=== PATIENT | female | born 1945 | race Caucasian/White ===

== ENCOUNTER 2025-02-14 14:24 | Outpatient (CLI) | payer MEDICARE, SELFPAY ==
--- NOTE | 2025-02-14 14:27 | ECG_ITS ---
Test Date: 2025-02-14 14:31:55 Measurements Intervals [place] Rate: 52 P: 46 NH: 151 QRS: 31 QRSD: 90 T: 17 QT: 402 QTc: 376 Interpretive Statements SINUS BRADYCARDIA OTHERWISE GROSSLY NORMAL TRACE WARNING: DATA QUALITY MAY AFFECT INTERPRETATION No previous ECG available for comparison Electronically Signed On 02-16-2025 15:19:03 CDT by Cory Dinero M.D.
--- OUTSIDE RECORDS SUMMARY | 2025-02-14 14:28 | XMS_ITS | Encounter Summary ---
Author Organization [facility] Healthcare Address [address] [place] [id number] Care Team Providers Care Collection Advisor Name Role Phone Kip Banuelos MD Primary Care Provider + Ruchi Sifuentes Unavailable Unavailable Reason for Visit * Reason Onset Date Comments Scheduling Appointments 09/21/2020 Reminder call for DEXA; No anwer Encounter Details Date Type Department Care Team (Late st Contact Info) Description 09/21/2020 Telephone [facility] [address] [place] [id number] [address] Scheduling Appointments (Reminder call for DEXA; No anwer) Social History Tobacco Use Types Packs/Day Years Used Date Smoking Tobacco: Never Comments No Sex and Gender Information Value Date Recorded Sex Assigned at Not on file 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
--- OUTSIDE RECORDS SUMMARY | 2025-02-14 14:28 | XMS_ITS | Clinical Summary ---
Author Organization [facility] Administrative Offices Address [address] [place] [address] Care Team Providers Care Ladies' Locker Room Attendant Name Role Phone Kip Banuelos MD Primary Care Provider [phone] Allergies Active Allergy Reactions Criticality Noted Date Comments Cefdinir Unknown 12/05/2003 Ciprofloxacin Itching Low 10/03/2015 Clindamycin Itching Low 11/14/2017 Levofloxacin Itching Low 01/09/2004 Medications aspirin (ASPIRIN LOW DOSE) 81 mg Tablet, Delayed Release (E.C.) Take 1 Tablet (81 mg) by mouth daily. 90 Tablet 3 04/01/20 16 Active montelukast (Singulair) 10 mg tablet Take 1 Tablet (10 mg) by mouth daily at bedtime. 90 Tablet 3 08/22/19 22 Active Additional Information Patient not taking.Reported on 08/09/2024 benzonatate (TESSALON) 200 mg capsule Take 1 Capsule (200 mg) by mouth 3 times daily. 30 Capsule 2 08/17/19 23 Active Additional Information Patient not taking.Reported on 08/09/2024 albuterol sulfate 90 mcg/actuation metered powder inhaler Take 2 Puffs by inhalation every 6 hours as needed for Shortness of Breath. 1 Each 1 01/01/20 23 Active Additional Information Patient not taking.Reported on 08/09/2024 rOPINIRole (REQUIP) 0.25 mg tabletIndicati ons:RLS (restless legs syndrome) TAKE 1 TABLET (0.25 MG) BY MOUTH DAILY AT BEDTIME 90 Tablet 1 04/14/20 23 Active Additional Information Patient not taking.Reported on 08/09/2024 doxepin HCl 4% cream compound Apply topically to the affected area every 4 hours as needed. 60 Gram 4 4:58 PM TIE IN MACHINE OPERATOR 05/28/20 23 Active Additional Information Patient not taking.Reported on 08/09/2024 tobramycin (TOBREX) 0.3 % solution Administer 1 Drop in left eye every 4 hours. 5 mL 12/19/19 24 Active Additional Information Patient not taking.Reported on 08/09/2024 pravastatin (PRAVACHOL) 40 mg tablet TAKE 1 TABLET BY MOUTH DAILY WITH SUPPER 90 Tablet 3 06/07/20 24 Active omeprazole (PriLOSEC) 20 mg Capsule, Delayed Release(E.C.) TAKE 1 CAPSULE BY MOUTH EVERY DAY 90 Capsule 3 09/10/19 25 Active levothyroxine 75 mcg tablet TAKE 1 TABLET BY MOUTH EVERY DAY 100 Tablet 3 09/10/19 25 Active amLODIPine (NORVASC) 2.5 mg tablet TAKE 1 TABLET BY MOUTH EVERYDAY AT BEDTIME 90 Tablet 2 09/15/19 25 Active escitalopram oxalate (LEXAPRO) 10 mg tablet TAKE 1 TABLET BY MOUTH EVERY DAY 90 Tablet 1 12/09/19 25 Active meclizine (ANTIVERT) 25 mg tablet TAKE 1 TABLET BY MOUTH 3 TIMES DAILY NEEDED FOR DIZZINESS 30 Tablet 01/22/20 25 Active meclizine (ANTIVERT) 25 mg tablet Take 1 Tablet (25 mg) by mouth 3 times daily as needed for Dizziness. 30 Tablet 01/20/20 24 025 Discontinued Active Problems Patient Care Coordination No te Formatting of this note migh t be different from the original. [id number] 07/04/23 Dr. Frank Dover - Conductor/Engineer Problem Noted Date Diagnosed Date Prediabetes 09/16/2018 Mitral regurgitation 11/08/2013 RLS (restless legs syndrome) 03/02/2010 Age-related osteoporosis wit hout current pathological fracture 02/08/2009 Anal fissure 03/26/2004 Anxiety state 12/21/2003 Hypothyroidism 11/30/2003 Resolved Problems Problem Noted Date Diagnosed Date Resolved Date Acute pharyngitis 08/13/2007 02/08/2009 Screening for lipoid disorders 08/13/2007 02/08/2009 Other malaise and fatigue 08/13/2007 Hematuria 07/16/2006 02/08/2009 Overview (07/04/2010): Updating IMO/ICD9 Code and Description Abdominal or pelvic swelling , mass or lump, unspecified site 07/11/2006 02/08/2009 Need for prophylactic vaccin ation with tetanus-diphtheria (Td) 07/11/2006 02/08/2009 Breast screening, unspecified 05/30/2005 02/08/2009 Disorder of bone and cartilage, unspecified 01/14/2005 02/08/2009 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 03/02/2010 Injury, other and unspecifie d, knee, leg, ankle, and foot 01/14/2005 02/08/2009 Allergy, unspecified not elsewhere classified 01/15/20 05 02/08/2009 Pneumonia, organism unspecified(486) 12/13/2003 02/08/2009 Acute bronchitis 12/09/2003 02/08/2009 Acute sinusitis, unspecified 11/30/2003 02/08/2009 Encounters Date Type Department Care Team Description 02/08/2025 External Device Data [facility]STRACTION Provider, Abstract 01/25/2025 External Device Data [facility]CTION Provider, Abstract 01/20/[address] [phone] Kip Banuelos MD 01/12/2025 External Device Data [facility] ABSTRACTION Provider, Abstract 12/22/2024 External Device Data [facility]STRACTION Provider, Abstract 12/22/2024 External Device Data [facility]STRACTION Provider, Abstract 12/22/2024 External Device Data [facility]STRACTION Provider, Abstract 12/21/2024 External Device Data [facility]STRACTION Provider, Abstract 12/08/2024 [address] [place] [address] [place] [address] Kip Banuelos MD 11/30/2024 Orders Only [place] [address] [place] [id number] Provider, Abstract 11/24/2024 External Device Data [facility] ABSTRACTION Provider, Abstract 11/23/2024 External Device Data [facility] ABSTRACTION Provider, Abstract 11/16/2024 2:54 PM CDT - 11/16/2024 11:59 PM CDT Hospital Encounter [facility] Bone Density [place] [address] [place] [address] Kip Banuelos MD Discharge Disposition: Home or Self Care 11/16/2024 Orders Only [facility] [address] [place] [address] Kip Banuelos MD Age-related osteoporosis without current pathological fracture (Primary Dx) from Last 3 Months Immunizations Immunization Administration Dates Next Due (ADACEL/BOOSTRIX)(10 YR UP) TDAP VACCINE, 0.5ML, IM 12/31/2021,06/18/2011 (AREXVY)(60 YR UP) RSV, WILLOW MBINANT, PROTEIN SUBUNIT RSVPREF, ADJUVANT RECONSTITUTED, 0.5 ML, PF 03/20/2023 (COMIRNATY)(12 YR UP) COVID- 19 VACCINE, MRNA, SPIKE PROTEIN, LNP, KESHAV(PF) 30 MCG/0.3 ML IM SUSP 02/24/2023 (INFANRIX)(6 WKS-6 YRS) DIPT HERIA, TETANUS TOXOIDS, AND ACCELLULAR PERTUSSIS VACCINE (DTAP), 0.5 ML IM 07/11/2006 (PFIZER)(12 YR UP) COVID-19 VACCINE - EMERGENCY USE AUTHORIZATION, MRNA, [id number](PF) 30 MCG/0.3 ML IM SUSP 10/16/2021,03/17/2021,08/01/2020,07/11 (PNEUMOVAX 23)(50 YRS UP) PN EUMOCOCCAL POLYSACCHARIDE (PPV23) 0.5 ML, IM 08/21/2020,02/08/2009,12/21/2003 (PREVNAR 13)(6 WKS UP) PNEUM OCOCCAL CONJUGATE (PCV13) 0.5 ML, IM 03/07/2014 (SHINGRIX)(50 YRS UP) ZOSTER VACCINE RECOMBINANT, 0.5 ML, IM 04/26/2019,02/22/2019 (TDVAX)(7 YRS UP) TETANUS AN D DIPHTHERIA TOXOIDS, ADSORBED (2 LF OF TETANUS TOXOID AND 2 LF OF DIPHTHERIA TOXOID), 0.5ML (PF), IM 01/13/1995 INFLUENZA VACCINE HIGH DOSE QUADRIVALENT 65 YR UP PF IM 02/23/2024,02/07/2022,02/21/2021,03/13 INFLUENZA VACCINE QUADRIVALE NT 6 MOS UP IM 02/24/2023 INFLUENZA VACCINE QUADRIVALE NT 6 MOS UP PF IM 03/30/2015 Influenza A (H1N1) Vaccine IM VFC 04/09/2009 Influenza Seasonal Unspecifi ed Formulation IM 03/13/2020,03/18/2018,03/30/2015,03/15,03/23/2013,04/09/2012,05/09/2011 ,03/09/2010,03/09/2009 Influenza Vaccine High Dose 65+ Yrs IM 9,03/08/2016,02/12/2016 Influenza Vaccine Tri Adjuva nted 65+ PF IM 03/25/2017 Family History Medical History Relation Name Comments Healthy Brother 1 Prostate Cancer Brother 1 prostate rem romeo Healthy Brother 2 Heart Disease Father Nirav Hypertension Father Nirav Colon Cancer Maternal Aunt Colon Cancer Maternal Grandfather Michael Heart Disease Maternal Grandmother Skyla Hypertension Mother Sherie Skin Cancer Mother Sherie Thyroid Disease Mother Sherie Colon Cancer Paternal Grandmother Dayan Heart Disease Paternal Grandmother Dayan Healthy Sister 1 Healthy Sister 2 Healthy Sister 3 Relation Name Status Comments Brother 1 Alive Brother 2 Alive Father Nirav Maternal Aunt Maternal Grandfather Michael Maternal Grandmother Skyla Mother Sherie Other aunt Alive Paternal Grandmother Dayan Sister 1 Alive Sister 2 Alive Sister 3 Alive Social History Tobacco Use Types Packs/Day Years Used Date Smoking Tobacco: Never Passive Smoke Exposure: Never Smokeless Tobacco: Never Tobacco Cessation:Counseling Given: No Alcohol Use Standard Drinks/Week Comments Yes 5 (1 standard drink = 0.6 oz pur e alcohol) socially Social Connections Answer Date Recorded In a typical week, how many times do you talk on the phone with family, friends, or neighbors? More than three times a week 04/20/2020 How often do you get togethe r with friends or relatives? Twice a week 04/20/2020 How often do you attend chur ch or jain services? More than 4 times per year 04/20/2020 Do you belong to any clubs o r organizations such as buddhist groups, unions, fraternal or athletic groups, or school groups? Yes 04/20/2020 Attends Club or Organization Meetings Not on zelalem e 04/20/2020 Marital Status Not on file 04/20/2020 Financial Resource Strain Answer Date R ecorded How hard is it for you to pa y for the very basics like food, housing, medical care, and heating? Not hard at all 08/20/2021 Food Insecurity Answer Date Recorded In the past 12 months, have you worried that your food would run out before you had money to buy more? Never true 08/20/2021 In the past 12 months, did y ou run out of food and didn't have money to buy more? Never true 08/20/2021 Transportation Needs Answer Date Record ed In the past 12 months, has l ack of transportation kept you from medical appointments or from getting medications? No 08/20/2021 Lack of Transportation (Non-Medical) Not on file 08/20/2021 Education Answer Date Recorded What is the highest level of school you have completed or the highest degree you have received? Master's degree (e.g., MA, MS, [place], MEd, [employer], BLAIR) 04/20/2020 Comments No Sex and Gender Information Value Date Recorded Sex Assigned at Not on file Legal Sex Female 2:39 AM TIE IN MACHINE OPERATOR Gender Identity Not on file Sexual Orientation Not on file Last Filed Vital Signs Vital Sign Reading Time Taken Comments Blood Pressure 138/56 08/09/2024 10:59 AM TIE IN MACHINE OPERATOR Pulse 57 08/09/2024 10:59 AM TIE IN MACHINE OPERATOR Temperature 36.2 C (97.2 F) 07/04/2023 10:24 AM TIE IN MACHINE OPERATOR Respiratory Rate 16 12/31/2022 10:0 8 AM CDT Oxygen Saturation 96% 08/09/2024 10: 59 AM TIE IN MACHINE OPERATOR Inhaled Oxygen Concentration - - Weight 69.3 kg (152 lb 12.8 oz) 025 10:59 AM TIE IN MACHINE OPERATOR Height 157.5 cm (5' 2) 08/09/2024 10:5 9 AM TIE IN MACHINE OPERATOR Body Mass Index 27.95 08/09/2024 10:59 AM TIE IN MACHINE OPERATOR Plan of Treatment Upcoming Encounters Date Type Department Care Team (Late st Contact Info) Description 02/15/2025 11:00 AM CDT Office Visit [facility] Primary Care [facility] [address] [place] [phone] Kip Banuelos MD [address] [place] [address] 03/03/2025 2:00 PM CDT Appointment [facility] Diagnostic Cardiology Services [facility] [address] [place] [address] Kip Banuelos MD [address] [facility] [address] [place] [address] Health Maintenance Due Date Last Done Comments Medicare Advantage ([place]) Preventative Visit/Annual Wellness Visit 06/09/2024 07/04/2023, 07/02/2022, 09/10/2021, Additional history exists INFLUENZA VACCINE (#1) 2025 4, 02/24/2023, 03/08/2022, Additional history exists COVID-19 Vaccine (2024- 6 season) 2025 02/24/2023, 03/18/2022, 10/16/2021, Additional history exists OSTEOPOROSIS SCREENING 11/16/2029 5, 10/28/2022, 09/22/2020, Additional history exists DTAP/TDAP/TD VACCINES (4 - T d or Tdap) 01/01/2032 12/31/2021, 06/18/2011, 07/11/2006, Additional history exists ZOSTER VACCINE Completed 04/26/2019, 02/07, 08/29/2014 PNEUMOCOCCAL VACCINE 50+ YEARS Completed 0 08/21/2020, 02/16/2015, 03/07/2014, Additional history exists RSV VACCINE (60+ or ) Completed 03/20/2023 COLORECTAL SCREENING Discontinued 04/29/2023, 10/02/2015, 10/02/2015, Additional history exists Colorectal Cancer Screening Discontinued FIT-DNA Q 3 years Discontinued FIT/FOBT Q 1 year Discontinued Flex Sig/CT Colonography Q 5 years Discontinued Procedures Procedure Name Priority Date/Time Associated Diagnosis Comments VITAMIN B12 LEVEL Routine 02/12/2025 10: 24 AM CDT Vitamin B12 deficiency (non anemic) TSH Routine 02/12/2025 10:24 AM CDT Other hyperlipidemia LIPID PANEL Routine 02/12/2025 10:24 AM CDT Other hyperlipidemia HEMOGLOBIN A1C Routine 02/12/2025 10:24 AM CDT Abnormal glucose COMPREHENSIVE METABOLIC PANEL Routine 02/12/2025 10:24 AM CDT Other hyperlipidemia CBC WITH DIFFERENTIAL Routine 02/12/2025 10:24 AM CDT Essential hypertension XR DEXA BONE DENSITY AXIAL 1 OR MORE SITES Routine 11/16/2024 3:05 PM CDT Osteoporosis, unspecified osteoporosis type, unspecified pathological fracture presence ENDOSCOPY, COLON, SCREENING Routine 04/29/2023 1:43 PM TIE IN MACHINE OPERATOR from Last 3 Months or Most Recently Relevant to Health Maintenance Results * (ABNORMAL) CBC WITH DIFFERENTIAL (02/12/2025 10:24 AM CDT) WBC 4.4 3.8 - 10.8 Thousand/u L [facility] RBC 4.69 3.80 - 5.10 Million/uL [facility] HEMOGLOBIN 13.6 11.7 - 15.5 g/dL [facility] HEMATOCRIT 43.7 35.0 - 45.0 % [facility] MCV 93.2 80.0 - 100.0 fL [facility] MCH 29.0 27.0 - 33.0 pg [facility] MCHC 31.1(L) 32.0 - 36.0 g/dL [facility] Comment: For adults, a slight decrease in the calculated MCHC value (in the range of 30 to 32 g/dL) is most likely not clinically significant; however, it should be interpreted with caution in correlation with other red cell parameters and the patient's clinical condition. RDW 12.8 11.0 - 15.0 % [facility] PLATELETS 254 140 - 400 Thousand/u L [facility] MPV 10.0 7.5 - 12.5 fL [facility] NEUTROPHIL ABSOLUTE 3,058 1,500 - 7,800 cells/uL [facility] LYMPHOCYTE ABSOLUTE 858 850 - 3,900 cells/uL [facility] MONOCYTE ABSOLUTE 317 200 - 950 cells/uL [facility] EOSINOPHIL ABSOLUTE 119 15 - 500 cells/uL [facility] BASOPHILS ABSOLUTE 48 0 - 200 cells/uL [facility] NEUTROPHIL 69.5 % [facility] LYMPHOCYTES 19.5 % [facility] MONOCYTE 7.2 % [facility] EOSINOPHILS 2.7 % [facility] BASOPHILS 1.1 % [facility] Comment: FASTING:YES FASTING: YES Test Performed at: [facility] [address] [place] [address] Emilie Rice MD Blood 02/12/2025 10:2 4 AM CDT 02/12/2025 10:25 AM CDT us Kip Banuelos MD HEMATOLOGY ORDERABLES Final R esult [facility] [phone] [facility] [address] * TSH (02/12/2025 10:24 AM CDT) TSH 1.09 0.40 - 4.50 mIU/L [facility] Comment: Test Performed at: [facility] [address] [place] [address] Emilie Rice MD Blood 02/12/2025 10:2 4 AM CDT 02/12/2025 10:25 AM CDT Kip Banuelos MD CHEMISTRY ORDERABLES Final Re sult [facility] [phone] [facility] [address] [place] [address] * (ABNORMAL) HEMOGLOBIN A1C (02/12/2025 10:24 AM CDT) HEMOGLOBIN A1C 5.7(H) <5.7 % of total Hgb [facility] Comment: For someone without known diabetes, a hemoglobin A1c value between 5.7% and 6.4% is consistent with prediabetes and should be confirmed with a follow-up test. For someone with known diabetes, a value <7% indicates that their diabetes is well controlled. A1c targets should be individualized based on duration of diabetes, age, comorbid conditions, and other considerations. This assay result is consistent with an increased risk of diabetes. Currently, no consensus exists regarding use of hemoglobin A1c for diagnosis of diabetes for children. ESTIMATED AVERAGE GLUCOSE (MG/DL) 117 mg/dL [facility] Michael ESTIMATED AVERAGE GLUCOSE (MMOL/L) 6.5 mmol/L [facility] Comment: FASTING:YES FASTING: YES Test [facility]formed [facility]: [facility] [address] [address] [facility] Blood 02/12/2025 10:2 4 AM CDT 02/12/2025 10:25 AM CDT Kip Banuelos MD CHEMISTRY ORDERABLES Final Re sult [facility] [phone] [facility] [address] [place] [address] * VITAMIN B12 LEVEL (02/12/2025 10:24 AM CDT) VITAMIN B12 698 200 - 1100 pg/mL [facility] Comment: FASTING:YES FASTING: YES Test Performed at: [facility] [address] [place] [address] Emilie Rice MD Blood 02/12/2025 10:2 4 AM CDT 02/12/2025 10:25 AM CDT Kip Banuelos MD CHEMISTRY ORDERABLES Final Re sult [facility] [phone] [facility] [address] [place] [address] * LIPID PANEL (02/12/2025 10:24 AM CDT) CHOLESTEROL 157 <200 mg/dL [facility] HDL 64 > OR = 50 mg/dL [facility] TRIGLYCERIDE 93 <150 mg/dL [facility] LDL CALCULATED 75 mg/dL (calc) [facility] Comment: Reference range: <100 Desirable range <100 mg/dL for primary prevention; <70 mg/dL for patients with CHD or diabetic patients with > or = 2 CHD risk factors. LDL-C is now calculated using the Lul-Stockton calculation, which is a validated novel method providing better accuracy than the Friedewald equation in the estimation of LDL-C. Lul SS et al. TAYLER. 2013;310(19): 0378-6289 (http://education.BookBub.DNAdigest/faq/XSO287) CHOL/HDL RATIO 2.5 <5.0 (calc) [facility] NON-HDL CHOLESTEROL 93 <130 mg/dL (calc) [facility] Comment: For patients with diabetes plus 1 major ASCVD risk factor, treating to a non-HDL-C goal of <100 mg/dL (LDL-C of <70 mg/dL) is considered a therapeutic option. Test Performed at: [facility] [address] [place] [address] Emilie Rice MD Blood 02/12/2025 10:2 4 AM CDT 02/12/2025 10:25 AM CDT Kip Banuelos MD CHEMISTRY ORDERABLES Final Re sult [facility] [phone] [facility] [address] [place] [address] * COMPREHENSIVE METABOLIC PANEL (02/12/2025 10:24 AM CDT) GLUCOSE 88 65 - 99 mg/dL [facility] Comment: Fasting reference interval BUN 17 7 - 25 mg/dL [facility] CREATININE 0.94 0.60 - 1.00 mg/dL [facility] GFR 62 > OR = 60 mL/min/1. 73m2 [facility] BUN/CREAT RATIO SEE NOTE: 6 - (calc) [facility] Comment: Not Reported: BUN and Creatinine are within reference range. SODIUM 142 135 - 146 mmol/L [facility] POTASSIUM 4.4 3.5 - 5.3 mmol/L [facility] CHLORIDE 104 98 - 110 mmol/L [facility] CO2 30 20 - 32 mmol/L [facility] CALCIUM 9.1 8.6 - 10.4 mg/dL [facility] TOTAL PROTEIN 6.7 6.1 - 8.1 g/dL [facility] ALBUMIN 4.2 3.6 - 5.1 g/dL [facility] GLOBULIN 2.5 1.9 - 3.7 g/dL (calc) [facility] ALBUMIN/GLOBULIN RATIO 1.7 1.0 - 2.5 (calc) [facility] BILIRUBIN TOTAL 0.9 0.2 - 1.2 mg/dL [facility] ALKALINE PHOSPHATASE 92 37 - 153 U/L [facility] AST 14 10 - 35 U/L [facility] ALT 14 6 - 29 U/L [facility] Comment: FASTING:YES FASTING: YES Test Performed at: [facility] [address] [place] [address] Emilie Rice MD Blood 02/12/2025 10:2 4 AM CDT 02/12/2025 10:25 AM CDT us Kip Banuelos MD CHEMISTRY ORDERABLES Final Re sult [facility] [phone] [facility] [address] [place] [address] * XR DEXA BONE DENSITY AXIAL 1 OR MORE SITES (11/16/2024 3:05 PM CDT) Anatomical Region Laterality Modality Digital Radiogra phy 11/16/2024 3:05 PM CDT Impressions 11/16/2024 3:10 PM CDT IMPRESSION: Osteoporosis. Lumbar Spine: T-score: -3.1 Left Femoral Neck: T-score: -1.5 Left Total Femur: T-score: -1.5 Right Femoral Neck: T-score: -1.8 Right Total Femur: T-score: -1.6 FRAX FRACTURE RISK ASSESSMENT: 10-Year probability of fracture Major osteoporotic fracture: 19.5 % Defined as fracture of the spine, hip or shoulder. Hip fracture: 4.4 % This is a summary page. Please refer to the complete detailed report found in: Imaging Section of the [facility] EMR. Definitions: Normal: T-score above -1.0 Osteopenia T-score less than -1.0 and above -2.5 Osteoporosis: T-score <= -2.5 Note: Clinical Osteoporosis may be based on other factors besides DXA calculated BMD. Other factors include and are not limited to fragility fractures, subclinical compression fractures,osteopenia and elevated FRAX Scores. A major osteoporotic fracture is defined as a fracture of the spine, forearm, hip or shoulder. Dictated by Dr. Rolan Mota MD DICTATION LOCATION: 1 Narrative 11/16/2024 3:10 PM CDT EXAMINATION: BONE DENSITY STUDY (DXA) DATE: 11/16/2024 3:05 PM HISTORY: 79 years Female. Postmenopausal. Osteoporosis. PROCEDURE: Planar images of the lumbar spine and hip(s). Webbynode DEXA scanner for bone mineral density determination (BMD). Prior bone density: 10/28/2022 FINDINGS: Lumbar Spine (L1-L2): T-score: -3.1 Prior T-score: -2.6 Left Femoral Neck: T-score: -1.5 Prior T-score: -1.4 Left Total Femur: T-score: -1.5 Right Femoral Neck: T-score: -1.8 Prior T-score: -1.4 Right Total Femur: T-score: -1.6 TECHNICAL ISSUES: L3-L4 excluded because of degenerative changes. Procedure Note Rolan Mota MD - 11/16/2024 EXAMINATION: BONE DENSITY STUDY (DXA) DATE: 11/16/2024 3:05 PM HISTORY: 79 years Female. Postmenopausal. Osteoporosis. PROCEDURE: Planar images of the lumbar spine and hip(s). [employer] DEXA scanner for bone mineral density determination (BMD). Prior bone density: 10/28/2022 FINDINGS: Lumbar Spine (L1-L2): T-score: -3.1 Prior T-score: -2.6 Left Femoral Neck: T-score: -1.5 Prior T-score: -1.4 Left Total Femur: T-score: -1.5 Right Femoral Neck: T-score: -1.8 Prior T-score: -1.4 Right Total Femur: T-score: -1.6 TECHNICAL ISSUES: L3-L4 excluded because of degenerative changes. IMPRESSION: Osteoporosis. Lumbar Spine: T-score: -3.1 Left Femoral Neck: T-score: -1.5 Left Total Femur: T-score: -1.5 Right Femoral Neck: T-score: -1.8 Right Total Femur: T-score: -1.6 FRAX FRACTURE RISK ASSESSMENT: 10-Year probability of fracture Major osteoporotic fracture: 19.5 % Defined as fracture of the spine, hip or shoulder. Hip fracture: 4.4 % This is a summary page. Please refer to the complete detailed report found in: Imaging Section of the [facility] EMR. Definitions: Normal: T-score above -1.0 Osteopenia T-score less than -1.0 and above -2.5 Osteoporosis: T-score <= -2.5 Note: Clinical Osteoporosis may be based on other factors besides DXA calculated BMD. Other factors include and are not limited to fragility fractures, subclinical compression fractures,osteopenia and elevated FRAX Scores. A major osteoporotic fracture is defined as a fracture of the spine, forearm, hip or shoulder. Dictated by Dr. Rolan Mota MD DICTATION LOCATION: 1 Kip Banuelos MD DIAGNOSTIC IMAGING ORDERABLES Final Result * ENDOSCOPY, COLON, SCREENING (04/29/2023 1:43 PM TIE IN MACHINE OPERATOR) Abstract Provider GI PROCEDURE ORDERABLES Edited Result - Final [facility] CLIA# [id number] [id number] [place] [address] from Last 3 Months or Most Recently Relevant to Health Maintenance Insurance [employer] [facility] [employer] Medicare Part D Advance Directives For more information, please contact: [phone] * Full Code (Latest Code Status on File) Date Activated Date Inactivated Comments 06/24/2017 7:49 AM 06/24/2017 11:48 AM * Full Code Date Activated Date Inactivated Comments 04/24/2015 6:56 AM 04/24/2015 10:56 AM Care Teams Ladies' Locker Room Attendant Relationship Specialty Start Date End Date Kip Banuelos MD [address] [place] [phone] PCP - General 08/05/06
--- OUTSIDE RECORDS SUMMARY | 2025-02-14 14:28 | XMS_ITS | Encounter Summary ---
Author Organization [facility] Healthcare Address [address] [place] [address] Care Team Providers Care Cloth Hauler Name Role Phone Kip Banuelos MD Primary Care Provider + Ruchi Sifuentes Unavailable Unavailable Encounter Details Date Type Department Care Team (Late st Contact Info) Description 06/18/2022 Documentation [facility] Physical Therapy [address] [place] [address] Maria Elena Kay, PT Social History Tobacco Use Types Packs/Day Years Used Date Smoking Tobacco: Never Smokeless Tobacco: Never AUDIT-C Answer Date Recorded Q1: How often do you have a drink containing alc ohol? Monthly or less 11/16/2021 Q2: How many drinks containi ng alcohol do you have on a typical day when you are drinking? 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
--- OUTSIDE RECORDS SUMMARY | 2025-02-14 14:28 | XMS_ITS | Encounter Summary ---
Author Organization [facility] Address [address] [place] [address] Care Team Providers Care Inspector And Hand Packager Name Role Phone Kip Banuelos MD Primary Care Provider [phone] Reason for Visit * Reason Onset Date Comments Misplaced eye glasses 04/10/2023 Encounter Details Date Type Department Care Team (Late st Contact Info) Description 04/10/2023 Telephone [facility] Primary Care [address] [place] [address] Kip Banuelos MD [address] [place] [address] [address] [place] [address] Misplaced eye glasses Social History Tobacco Use Types Packs/Day Years Used Date Smoking Tobacco: Never Smokeless Tobacco: Never Alcohol Use Standard Drinks/Week Comments Yes 5 (1 standard drink = 0.6 oz pur e alcohol) Social Connections Answer Date Recorded In a typical week, how many times do you talk on the phone with family, friends, or neighbors? More than three times a week 04/20/2020 How often do you get togethe r with friends or relatives? Twice a week 04/20/2020 How often do you attend chur ch or muslim services? 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 She states she may have left her purple readers. She is requesting a call back if they are found. Call-back Number: [phone] documented in this encounter Plan of Treatment Upcoming Encounters Date Type Department Care Team (Late st Contact Info) Description 02/15/2025 11:00 AM CDT Office Visit [facility] Primary Care [address] [place] [address] Kip Banuelos MD [address] [place] [address] [address] [place] [address] 03/03/2025 2:00 PM CDT Appointment [facility] Diagnostic Cardiology Services [facility] [address] [facility] [address] [place] [phone] Kip Banuelos MD [address] [place] [address] [address] [place] [address] documented as of this encounter Visit Diagnoses Not on filedocumented in this encounter Care Teams Inspector And Hand Packager Relationship Specialty Start Date End Date Kip Banuelos MD [address] [place] [address] [address] [place] [address] PCP - General 08/05/06 documented as of this encounter
--- OUTSIDE RECORDS SUMMARY | 2025-02-14 14:28 | XMS_ITS | Encounter Summary ---
Author Organization [facility] Address 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 [address] [place] [address] 03/03/2025 2:00 PM CDT Appointment [facility] Diagnostic Cardiology Services [facility] [address] [facility] [address] [place] [address] Kip Banuelos MD [address] [place] [address] [place] [phone] documented as of this encounter Visit Diagnoses Not on filedocumented in this encounter Care Teams Career Technology Teacher Relationship Specialty Start Date End Date Kip Banuelos MD [address] [place] [address] [address] [place] [address] PCP - General 08/05/06 documented as of this encounter
--- OUTSIDE RECORDS SUMMARY | 2025-02-14 14:28 | XMS_ITS | Clinical Summary ---
Author Organization [facility] Address [address] [place] [address] Care Team Providers Care Bar Tacker Sewing Machine Name Role Phone John Monzon MD Primary Care Provider + Ruchi Sifuentes Unavailable Unavailable Allergies Active Allergy Reactions Criticality Noted Date Comments Cefdinir Rash,Unknown Low 12/05/2003 Reaction: RASH Ciprofloxacin Itching Low 10/03/2015 Reaction: ITCHING Clindamycin Itching Low 11/14/2017 Erythromycin Diarrhea Low Levofloxacin Rash,Itching Low 01/09/2004 Reaction: RASH Medications levothyroxine (SYNTHROID) 75 mcg tablet take 1 tablet (75MCG) by oral route every day 0 3 Active escitalopram (LEXAPRO) 10 mg tablet take 1 tablet (10MG) by oral route every day 0 3 Active naproxen sodium (ALEVE) 220 mg capsule takes 1 tablet daily at bedtime 0 0 3 Active omeprazole (PriLOSEC) 20 mg capsule Take 20 mg by mouth daily 2 Active pravastatin (PRAVACHOL) 20 mg tablet Take 20 mg by mouth daily 1 Active montelukast (SINGULAIR) 10 mg tablet Take 10 mg by mouth daily 2 Active aspirin 81 mg enteric coated tablet Take 81 mg by mouth daily 6 Active cycloSPORINE (RESTASIS) 0.05 % ophthalmic emulsion Administer into affected eye(s) Active azelastine (ASTELIN) 137 mcg (0.1 %) nasal spray Administer 2 sprays into affected nostril(s) 2 (two) times a day 2 Active amLODIPine (NORVASC) 2.5 mg tablet 2 Active meclizine (ANTIVERT) 25 mg tablet Take 25 mg by mouth 2 (two) times a day 2 Active Active Problems Problem Noted Date Diagnosed Date Distal radius fracture, right 11/16/2021 Carpal tunnel syndrome of right wrist 11/16/2021 Overview (11/16/2021): Added automatically from request for surgery [id number] Prediabetes 09/16/2018 Mitral regurgitation 11/08/2013 Osteopenia 10/14/2012 Overview (09/12/2016): Osteopenia RLS (restless legs syndrome) 03/02/2010 Osteoporosis 02/08/2009 Anal fissure 03/26/2004 Anxiety state 12/21/2003 Hypothyroidism 11/30/2003 Immunizations Immunization Administration Dates Next Due Influenza, Trivalent, IM (MDV) 03/17/2016 Pfizer SARS-CoV-2 Monovalent Vaccination (12+ Yrs) PURPLE 10/16/2021,03/17/2021,08/01/2020,2020 Tdap 06/18/2011 Surgical History Surgery Date Site/Laterality Comments OTHER SURGICAL HISTORY Appendectomy 1968 OTHER SURGICAL HISTORY Sphinctorotomy 1999 Medical History Medical History Date Comments Motion sickness Heart murmur Asthma Allergic rhinitis Hypothyroidism Family History Medical History Relation Name Comments Breast cancer Cousin x 2 Cancer Other 1 Family H/O Cancer; Hypertension Other 1 Family H/O Hypertension; Relation Name Status Comments Cousin x 2 Other 1 Family H/O Alive Other 2 Family H/O Alive Social History Tobacco Use Types Packs/Day [...] on file 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 Gender Identity Not on file Sexual Orientation Not on file Obstetrics History Para Term AB IAB SAB Ectopic Multiple Livin g Live Births 5 5 5 Date Outcome GA Total Labor Labor/2nd/3rd Weight Sex Type Anes PTL Juliet A1 A5 Name Clin Term Term Term Term Term Last Filed Vital Signs Vital Sign Reading Time Taken Comments Blood Pressure 120/50 11/20/2021 11:15 AM CDT Pulse 52 11/20/2021 11:15 AM CDT Temperature 36.4 C (97.5 F) 11/20/2021 10:54 AM CDT Respiratory Rate 18 11/20/2021 11:15 AM CDT Oxygen Saturation 92% 11/20/2021 11:15 AM CDT Inhaled Oxygen Concentration - - Weight 69.4 kg (153 lb) 02/20/2024 1:15 PM CDT Height 154.9 cm (5' 1) 02/20/2024 1:15 PM CDT Body Mass Index 28.91 02/20/2024 1:15 PM CDT Plan of Treatment Health Maintenance Due Date Last Done Comments Depression Screening 1945 Fall Risk Assessment 1945 Hepatitis C Screening 1945 Hepatitis B Screening 1965 Well Visit 65+ 2012 Osteoporosis Screening-Bone Density Scan 10/28/2024 10/28/2022, 10/28/2022, 09/22/2020, Additional history exists Covid-19 Vaccine (5 - 2024-2 6 season) 2025 10/16/2021, 03/17/2021, 08/01/2020, Additional history exists Influenza Vaccine (#1) 2025 3, 03/13/2020, 02/12/2019, Additional history exists DTaP/Tdap/Td Vaccine (4 - Td or Tdap) 01/01/2032 12/31/2021, 06/18/2011, 07/11/2006, Additional history exists Colon Cancer Screening-CT Colonography Discontinued 10/02/2015, 09/29/2015 Colon Cancer Screening-Colonoscopy Discontinued 10/02/2015, 09/29/2015 Colon Cancer Screening-DNA Stool Discontinued 10/02/19 16, 09/29/2015 Colon Cancer Screening-FIT Discontinued 10/02/2015, Colon Cancer Screening-FOBT Discontinued 10/02/2015, 0 09/29/2015 Colon Cancer Screening-Sigmoidoscopy Discontinued 10/02/2015, 09/29/2015 Colorectal Cancer Screening Discontinued Zoster Vaccine Completed 04/26/2019, 02/07, 08/29/2014 Pneumococcal vaccine 65+ Completed 021, 03/07/2014, 02/08/2009, Additional history exists Breast Cancer Screening-Mammogram Discontinued 03/31/2024, 02/24/2023, 12/20/2021, Additional history exists Medical Devices Implanted Type Area Chute Loader Device Identifier Shelf Expiration Date Model / Serial / Lot [employer] 3 Hole Anatomic Graft Window Radius Right Wrist Volar Narrow [id number] - [id number] Implanted:Qty: 1 on 11/20/2021 by Ale Trujillo MD at [facility] Right: Wrist [employer] AR-[id number]- 03 / / [employer] Low Profile Screws 3.5mm 12mm Self Drill Solid Midfoot Cortical T [id number]-8935-12 - [id number] Implanted:Qty: 1 on 11/20/2021 by Ale Trujillo MD at [facility] Right: Wrist [employer] AR-8935-12 / / [employer] Screw Kreulock Compression Titanium 2.4x18mm [id number] - [id number] Implanted:Qty: 4 on 11/20/2021 by Ale Trujillo MD at [facility] Right: Wrist [employer] AR-8724VCL- 18 / / [employer] Screw Kreulock Compression Titanium 2.4x20mm [id number] - [id number] Implanted:Qty: 1 on 11/20/2021 by Ale Trujillo MD at [facility] Right: Wrist [employer] AR-8724VCL- 20 / / [employer] Screw Kreulock Compression Titanium 2.4x16mm [id number] - [id number] Implanted:Qty: 1 on 11/20/2021 by Ale Trujillo MD at [facility] Right: Wrist [employer] AR-8724VCL- 16 / / [employer] Screw Kreulock Compression Titanium 3.5x14mm [id number] - [id number] Implanted:Qty: 1 on 11/20/2021 by Ale Trujillo MD at [facility] Right: Wrist [employer] AR-8935CL-1 4 / / [employer] Screw Kreulock Compression Titanium 3.5x14mm [id number] - [id number] Implanted:Qty: 1 on 11/20/2021 by Ale Trujillo MD at [facility] Right: Wrist [employer] AR-8935CL-1 2 / / Procedures Procedure Name Priority Date/Time Associated Diagnosis Comments SCREENING MAMMOGRAM BILATERAL W JERRY Schedule Routine, Read Routine (OP Routine) 03/31/2024 2:10 PM CDT Screening mammogram, encounter for DEXA AXIAL SKELETON BONE DENSITY 1 OR MORE SITES Schedule Routine, Read Routine (OP Routine) 09/22/2020 12:56 PM CDT Asymptomatic menopausal state COLONOSCOPY 10/02/2015 12:00 AM CDT from Last 3 Months or Most Recently Relevant to Health Maintenance Results * Screening Mammogram Bilateral W Jerry (03/31/2024 2:10 PM CDT) Anatomical Region Laterality Modality Breast Bilateral Mammography 03/31/2024 11:3 7 PM CDT Impressions 03/31/2024 11:37 PM CDT There is no mammographic evidence of malignancy. A 1 year screening mammogram is recommended. BI-RADS: 1 - Negative. The patient has been or will be contacted. The patient will be entered into a reminder system with a target due date of 1 year for her next mammogram. Electronically signed by: Sayra Brody M.D. Narrative 03/31/2024 11:37 PM CDT EXAMINATION: SCREENING MAMMOGRAM BILATERAL W JERRY ORDERING HEALTHCARE PROVIDER: SELF SCREENING MAMMOGRAM HISTORY: Routine screening mammography. COMPARISON: 02/24/2023,12/20/2021, 09/22/2020, 04/09/2019 TECHNIQUE: CC and MLO views of the bilateral breasts were obtained with digital technique using breast tomosynthesis with C view. Computer aided detection was utilized. FINDINGS: DENSITY: There are scattered areas of fibroglandular density. BREASTS: There are no suspicious masses, suspicious calcifications, or other suspicious findings in either breast. There has been no suspicious interval change. us Self Screening Mammogram IMG MAMMO PROCEDURES Fi nal Result * Dexa Axial Skeleton Bone Density 1 or 2 Site (09/22/2020 12:56 PM CDT) Anatomical Region Laterality Modality Body N/A Other 09/22/2020 12:5 9 PM CDT Impressions 09/22/2020 1:00 PM CDT According to the World Health Organization criteria, based upon the lumbar spine bone mineral density (T score value of -1.8), the patient has low bone mass (osteopenia). General Recommendations: 1. Consider an evaluation for secondary causes of osteoporosis in patients with low bone density. 2. All patients should be counseled on adequate intake of calcium (1200 mg/day), vitamin D (600-800 IU daily) and exercise. 3. The National Osteoporosis Foundation (NOF) guidelines recommend initiating pharmacological therapy, in addition to calcium, vitamin D and exercise, to reduce fracture risk when: a. T-score less than or equal to -2.5 after secondary causes excluded. b. T-score between -1.0 and -2.5 with secondary causes associated with high risk of fracture. c. 10-year probability of hip fracture more than or equal to 3% (based on FRAX score). d. 10-year probability of major osteoporosis related fracture more than or equal to 20% (based on FRAX score). Followup: People with diagnosed cases of osteoporosis or at high risk for fracture should have regular bone mineral density tests. For patients eligible for Medicare, routine testing is allowed once every 2 years. The testing frequency can be increased to one year for patients who have rapidly progressive disease or those who are receiving long-term steroid therapy. Electronically signed by: MD Lillian Diggs 09/22/2020 1:00 PM CDT COMPLETION DATE: 09/22/2020 1:30 PM ORDERING HEALTHCARE PROVIDER: JOHN MONZON STUDY DESCRIPTION: DEXA AXIAL SKELETON BONE DENSITY 1 OR MORE SITES CLINICAL INDICATIONS: Postmenopausal female here for osteoporosis screening. COMPARISON: None TECHNIQUE: Dual x-ray absorptiometry (DEXA) was performed using 6APT system. GENERAL GUIDELINES: According to WHO guidelines, a T score of -1.0 or greater is normal, between -1.0 to -2.4 is osteopenia, and -2.5 or less is osteoporosis. Z score (instead of T score) is preferred for pediatric, young adults, premenopausal women and men under age of 50 years. In these patients, a Z score greater than or equal to -2.0 is considered to be in the expected range. FINDINGS: LEFT FEMORAL NECK: T-score -1.4 LEFT TOTAL HIP: T-score -0.7 LUMBAR SPINE: T-score -1.8 A FRAX score based upon a DXA study is not reported unless all of the following criteria are met. The patient: a. Is an untreated postmenopausal woman or a man age 50 or older. b. Has low bone mass (T-score between -1.0 and -2.5). c. Has no prior hip or vertebral fracture (clinical or morphometric). d. Has an evaluable hip for DXA study. Procedure Note Susannah Ford MD - 09/22/2020 COMPLETION DATE: 09/22/2020 1:30 PM ORDERING HEALTHCARE PROVIDER: JOHN MONZON STUDY DESCRIPTION: DEXA AXIAL SKELETON BONE DENSITY 1 OR MORE SITES CLINICAL INDICATIONS: Postmenopausal female here for osteoporosis screening. COMPARISON: None TECHNIQUE: Dual x-ray absorptiometry (DEXA) was performed using 6APT system. GENERAL GUIDELINES: According to WHO guidelines, a T score of -1.0 or greater is normal, between -1.0 to -2.4 is osteopenia, and -2.5 or less is osteoporosis. Z score (instead of T score) is preferred for pediatric, young adults, premenopausal women and men under age of 50 years. In these patients, a Z score greater than or equal to -2.0 is considered to be in the expected range. FINDINGS: LEFT FEMORAL NECK: T-score -1.4 LEFT TOTAL HIP: T-score -0.7 LUMBAR SPINE: T-score -1.8 A FRAX score based upon a DXA study is not reported unless all of the following criteria are met. The patient: a. Is an untreated postmenopausal woman or a man age 50 or older. b. Has low bone mass (T-score between -1.0 and -2.5). c. Has no prior hip or vertebral fracture (clinical or morphometric). d. Has an evaluable hip for DXA study. IMPRESSION: According to the World Health Organization criteria, based upon the lumbar spine bone mineral density (T score value of -1.8), the patient has low bone mass (osteopenia). General Recommendations: 1. Consider an evaluation for secondary causes of osteoporosis in patients with low bone density. 2. All patients should be counseled on adequate intake of calcium (1200 mg/day), vitamin D (600-800 IU daily) and exercise. 3. The National Osteoporosis Foundation (NOF) guidelines recommend initiating pharmacological therapy, in addition to calcium, vitamin D and exercise, to reduce fracture risk when: a. T-score less than or equal to -2.5 after secondary causes excluded. b. T-score between -1.0 and -2.5 with secondary causes associated with high risk of fracture. c. 10-year probability of hip fracture more than or equal to 3% (based on FRAX score). d. 10-year probability of major osteoporosis related fracture more than or equal to 20% (based on FRAX score). Followup: People with diagnosed cases of osteoporosis or at high risk for fracture should have regular bone mineral density tests. For patients eligible for Medicare, routine testing is allowed once every 2 years. The testing frequency can be increased to one year for patients who have rapidly progressive disease or those who are receiving long-term steroid therapy. Electronically signed by: Susannah Ford MD John Monzon MD IM DXA PROCEDURES Final Result * COLONOSCOPY (10/02/2015 12:00 AM CDT) Anatomical Region Laterality Modality Other Narrative 10/02/2015 12:00 AM CDT Ordered by an unspecified provider. Procedure Note Provider, MD Maria Elena - 10/02/2015 12:00 AM CDT PROCEDURE REPORT Patient: ROSELIA HONG Account: [id number] Room No: 3618-01 : 1945 Patient Type: IP Attend.: Chasidy Calhoun M.D. Admit Date: 09/29/2015 Dict.: Riley Chandra M.D. Disch. Date: 10/02/2015 NAME OF PROCEDURE: Colonoscopy with biopsy. HISTORY: A 68-year-old female who was admitted with hematochezia and hadan abnormal CT scan, suggesting an abnormality in the descending sigmoidjunction. PHYSICAL EXAMINATION: GENERAL: Well-developed female. LUNGS: Clear. CARDIOVASCULAR: Unremarkable. PROCEDURE: Colonoscopy with biopsy was performed with an Olympus video endoscope. The patient was premedicated by anesthesia. 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 Noactive fistula noted. We inserted the endoscope and saw a normal mucosa until wasgot to the sigmoid descending junction about 38-40 cm. From that point, up tothe splenic flexure, there are diffuse inflammatory changes with a patternpicture most consistent with ischemia and from the splenic flexure onward to thececum, colonic mucosa appears to be normal. We brought the scope back,carefully searching and could find no other abnormalities and when we got back tothe left side of the colon, we did multiple biopsies of the areas ofinflammation and then removed the endoscope. The patient tolerated the procedurewithout difficulty. POSTOPERATIVE DIAGNOSES: 1. Descending colon diffuse inflammatory change compatible withischemic colitis biopsied. 2. Very deformed anus. Electronically Authenticated and Edited by: Riley Chandra MD On 10/03/2015 07:27 AM CDT Riley Chandra M.D. DR/susan TD: 10/02/2015 20:40 CC: John Monzon M.D. Historical Provider ENDOSCOPY PROCEDURES Nasra nixon Result from Last 3 Months or Most Recently Relevant to Health Maintenance Insurance [facility] MEDICARE ADVANTAGE [facility] MEDICARE Address: [address] [address] [place] [address] MEDICARE [facility] MEDICARE [facility] MEDICARE Care Teams Bar Tacker Sewing Machine Relationship Specialty Start Date End Date John Monzon MD PCP - General 04/08/16 Ruchi Sifuentes COTA Occupational Therapist Occupational Therapy 12/06/21
--- OUTSIDE RECORDS SUMMARY | 2025-02-14 14:29 | XMS_ITS | Encounter Summary ---
Author Organization [facility] Address 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 [address] [facility] [address] [place] [phone] Kip Banuelos MD [address] [place] [address] [address] [place] [phone] documented as of this encounter Visit Diagnoses Not on filedocumented in this encounter Care Teams Music Arranger Relationship Specialty Start Date End Date Kip Banuelos MD [address] [place] [address] [address] [place] [phone] PCP - General 08/05/06 documented as of this encounter
--- OUTSIDE RECORDS SUMMARY | 2025-02-14 14:29 | XMS_ITS | Encounter Summary ---
Author Organization [facility] Address [address] [place] [address] Care Team Providers Care Grinder Set Up Operator Universal Name Role Phone John Monzon MD Primary Care Provider [phone] Encounter Details Date Type Department Care Team (Latest Contact Info) Description 09/18/2007 Outpatient Historical [facility] John Monzon MD [address] [place] [address] [address] [place] [address] Lump or Mass in Breast Social History Tobacco Use Types Packs/Day Years Used Date Smoking Tobacco: Never Assessed Comments Unknown Sex and Gender Information Value Date Recorded Sex Assigned at Not on file Legal Sex Female 2:39 AM FLOW SPECIALIST Gender Identity Not on file Sexual Orientation Not on file documented as of this encounter Plan of Treatment Upcoming Encounters Date Type Department Care Team (Late st Contact Info) Description 02/15/2025 11:00 AM CDT Office Visit [facility] Primary Care [facility] [address] [facility] [address] [place] [address] John Monzon MD [address] [place] [address] [address] [place] [address] 03/03/2025 2:00 PM CDT Appointment [facility] Diagnostic Cardiology Services [facility] 755 [facility] [address] [place] [address] John Monzon MD [address] [place] [address] documented as of this encounter Procedures Procedure Name Priority Date/Time Associated Diagnosis Comments CT CHEST W CONTRAST Routine 09/18/2007 2 :59 PM CDT POC CREATININE Routine 09/18/2007 2:56 PM CDT documented in this encounter Results * CT CHEST W CONTRAST (09/18/2007 2:59 PM CDT) Anatomical Region Laterality Modality Chest Other 09/18/2007 2:59 PM CDT Narrative 09/19/2007 7:51 AM CDT [address] [address] Admit Date: 09/18/2007 TATIANA HONG Sex: F Admit Prov: JOHN MONZON Date: 1945 Primary Care Prov: JOHN MONZON CMRN: [id number] Room: [facility] SSN: [id number] IMAGING SERVICES Ordering Prov: N/A Accession Number: [id number] Interpretation CT of the chest with intravenous contrast 09/18/2007 Clinical History: Mass in breast Technique: Spiral volumetric acquisition of the chest was performed following intravenous contrast. Findings: No mediastinal, hilar, or axillary adenopathy is seen. No pericardial or pleural effusions are evident. Lung parenchymal windows demonstrate mild biapical pleural-parenchymal changes. Minimal linear scarring or atelectasis is noted within the lateral right upper lobe (image 17). A 4 mm peripheral nodule is noted abutting the pleural surface within the right middle lobe (image 35). No other pulmonary nodules are seen. Minimal atelectasis or scarring within the inferior right middle lobe is present. Minimal dependent atelectasis is seen. No other pulmonary nodules are evident. The visualized portions of the upper abdomen are unremarkable for phase of injection. Impression: 4 mm right middle lobe nodule. This is of uncertain clinical significance. A followup chest CT in 6 months may be considered for further evaluation. Mild biapical pleural-parenchymal changes. . Dictated by: MERARI LOUISE 09/18/2007 15:39 Electronically signed by: MERARI LOUISE09/19/2007 07:51 Transcribed: 09/18/2007 23:15 AMK Procedure Note Merari Louise MD - 09/19/2007 [facility] [address] [place], [place] [address] Admit Date: 09/18/2007 TATIANA HONG Sex: F Admit Prov: JOHN MONZON Date: 1945 Primary Care Prov: JOHN MONZON CMRN: [id number] Room: [facility] SSN: [id number] IMAGING SERVICES Ordering Prov: N/A Interpretation CT of the chest with intravenous contrast 09/18/2007 Clinical History: Mass in breast Technique: Spiral volumetric acquisition of the chest was performed following intravenous contrast. Findings: No mediastinal, hilar, or axillary adenopathy is seen. No pericardialor pleural effusions are evident. Lung parenchymal windows demonstrate mild biapicalpleural-parenchymal changes. Minimal linear scarring or atelectasis is noted within thelateral right upper lobe (image 17). A 4 mm peripheral nodule is notedabutting the pleural surface within the right middle lobe (image 35). No otherpulmonary nodules are seen. Minimal atelectasis or scarring within the inferiorright middle lobe is present. Minimal dependent atelectasis is seen. Noother pulmonary nodules are evident. The visualized portions of the upper abdomen are unremarkable forphase of injection. Impression: 4 mm right middle lobe nodule. This is of uncertain clinicalsignificance. A followup chest CT in 6 months may be considered for furtherevaluation. Mild biapical pleural-parenchymal changes. . Dictated by: MERARI LOUISE 09/18/2007 15:39 Electronically signed by: MERARI LOUISE09/19/2007 07:51 Transcribed: 09/18/2007 23:15 AMK John Monzon MD CT ORDERABLES Final Result * POC CREATININE (09/18/2007 2:56 PM CDT) CREATININE POC 0.9 0.6 - 1.3 mg/dL [facility] Capillary blood specimen (specimen) 09/18/2007 2:56 PM CDT 09/18/2007 2:56 PM CDT us John Monzon MD POINT OF CARE TESTING Final R esult [facility] [address] [facility] [address] documented in this encounter Visit Diagnoses Diagnosis Lump or mass in breast documented in this encounter Care Teams Grinder Set Up Operator Universal Relationship Specialty Start Date End Date John Monzon MD [address] [place] [address] [place] [phone] PCP - General 08/05/06 documented as of this encounter
--- OUTSIDE RECORDS SUMMARY | 2025-02-14 14:29 | XMS_ITS | Encounter Summary ---
Author Organization [facility] Address [address] [place] [address] Care Team Providers Care Grid Inspector Name Role Phone Kip Banuelos MD Primary Care Provider [phone] Encounter Details Date Type Department Care Team (Late Contact Info) Description 01/14/2005 Outpatient Historical [facility] Internal Medicine [address] [address] Kip Banuelos MD [address] [place] [address] [address] [place] [address] Social History Tobacco Use Types Packs/Day Years Used Date Smoking Tobacco: Never Assessed Comments Unknown Sex and Gender Information Value Date Recorded Sex Assigned at Not on file Legal Sex Female 2:39 AM GIG TENDER Gender Identity Not on file Sexual Orientation Not on file documented as of this encounter Last Filed Vital Signs Vital Sign Reading Time Taken Comments Blood Pressure 130/70 01/14/2005 9:15 AM CDT Pulse - - Temperature - - Respiratory Rate - - Oxygen Saturation - - Inhaled Oxygen Concentration - - Weight 59.9 kg (132 lb) 01/14/2005 9:15 AM CDT Height - - Body Mass Index - - documented in this encounter Plan of Treatment Upcoming Encounters Date Type Department Care Team (Late Contact Info) Description 02/15/2025 11:00 AM CDT Office Visit [facility] Primary Care [address] [place] [phone] Kip Banuelos MD [address] [place] [address] [address] [place] [address] 03/03/2025 2:00 PM CDT Appointment [facility] Diagnostic Cardiology Services [facility] 755 [facility] [address] [place] [phone] Kip Banuelos MD [address] [place] [address] [address] [place] [address] documented as of this encounter Visit Diagnoses Not on filedocumented in this encounter Care Teams Grid Inspector Relationship Specialty Start Date End Date Kip Banuelos MD [address] [place] [address] [address] [place] [phone] PCP - General 08/05/06 documented as of this encounter
--- OUTSIDE RECORDS SUMMARY | 2025-02-14 14:29 | XMS_ITS | Encounter Summary ---
Author Organization [facility] Address [address] [place] [address] Care Team Providers Care Rn Clinical Coordinator Name Role Phone Kip Banuelos MD Primary Care Provider [phone] Encounter Details Date Type Department Care Team (Late Contact Info) Description 06/07/2004 Outpatient Historical [facility] Internal Medicine [address] [phone] Kip Banuelos MD [address] [place] [address] [address] [place] [address] Social History Tobacco Use Types Packs/Day Years Used Date Smoking Tobacco: Never Assessed Comments Unknown Sex and Gender Information Value Date Recorded Sex Assigned at Not on file Legal Sex Female 2:39 AM TOLL LINEMAN Gender Identity Not on file Sexual Orientation Not on file documented as of this encounter Last Filed Vital Signs Vital Sign Reading Time Taken Comments Blood Pressure 120/70 06/07/2004 1:45 PM TOLL LINEMAN Pulse - - Temperature - - Respiratory Rate - - Oxygen Saturation - - Inhaled Oxygen Concentration - - Weight 58.1 kg (128 lb) 06/07/2004 1:45 PM TOLL LINEMAN Height - - Body Mass Index - - documented in this encounter Plan of Treatment Upcoming Encounters Date Type Department Care Team (Late st Contact Info) Description 02/15/2025 11:00 AM CDT Office Visit [facility] Primary Care [address] [place] [address] Kip Banuelos MD [address] [place] [address] [address] [place] [phone] 03/03/2025 2:00 PM CDT Appointment [facility] Diagnostic Cardiology Services [address] [place] [phone] Kip Banuelos MD [address] [place] [address] [address] [place] [phone] documented as of this encounter Visit Diagnoses Not on filedocumented in this encounter Care Teams Rn Clinical Coordinator Relationship Specialty Start Date End Date Kip Banuelos MD [address] [place] [address] [address] [place] [phone] PCP - General 08/05/06 documented as of this encounter
--- OUTSIDE RECORDS SUMMARY | 2025-02-14 14:29 | XMS_ITS | Encounter Summary ---
Author Organization [facility] Address [address] [place] [address] Care Team Providers Care Business Applications Developer Name Role Phone Kip Banuelos MD Primary Care Provider [phone] Encounter Details Date Type Department Care Team (Late Contact Info) Description 03/26/2004 Outpatient Historical [facility] Internal Medicine [address] [address] Kip Banuelos MD [address] [place] [address] [address] [place] [address] Social History Tobacco Use Types Packs/Day Years Used Date Smoking Tobacco: Never Assessed Comments Unknown Sex and Gender Information Value Date Recorded Sex Assigned at Not on file Legal 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 Female 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 Gender Identity Not on file Sexual Orientation Not on file documented as of this encounter Last Filed Vital Signs Vital Sign Reading Time Taken Comments Blood Pressure 104/70 03/26/2004 4:30 PM CDT Pulse - - Temperature - - Respiratory Rate - - Oxygen Saturation - - Inhaled Oxygen Concentration - - Weight 59.9 kg (132 lb) 03/26/2004 4:30 PM CDT Height - - Body Mass Index - - documented in this encounter Plan of Treatment Upcoming Encounters Date Type Department Care Team (Late Contact Info) Description 02/15/2025 11:00 AM CDT Office Visit [facility] Primary Care [address] [place] [phone] Kip Banuelos MD [address] [place] [address] [address] [place] [address] 03/03/2025 2:00 PM CDT Appointment [facility] Diagnostic Cardiology Services [facility] 7[address] [facility] [address] [place] [phone] Kip Banuelos MD [address] [place] [address] [address] [place] [address] documented as of this encounter Visit Diagnoses Not on filedocumented in this encounter Care Teams Business Applications Developer Relationship Specialty Start Date End Date Kip Banuelos MD [address] [place] [address] [address] [place] [phone] PCP - General 08/05/06 documented as of this encounter
--- OUTSIDE RECORDS SUMMARY | 2025-02-14 14:29 | XMS_ITS | Encounter Summary ---
Author Organization [facility] Address [address] [place] [address] Care Team Providers Care Utility Clerk Name Role Phone Kip Banuelos MD Primary Care Provider [phone] Encounter Details Date Type Department Care Team (Latest Contact Info) Description 08/13/[address] [facility] Internal Medicine [address] [address] Kip Baunelos MD [address] [place] [address] [address] [place] [address] Acute Pharyngitis Social History Tobacco Use Types Packs/Day Years Used Date Smoking Tobacco: Never Assessed Comments Unknown Sex and Gender Information Value Date Recorded Sex Assigned at Not on file Legal Sex Female 2:39 AM STOCK BROKER SUPERVISOR Gender Identity Not on file Sexual Orientation Not on file documented as of this encounter Plan of Treatment Upcoming Encounters Date Type Department Care Team (Late st Contact Info) Description 02/15/2025 11:00 AM CDT Office Visit [facility] Primary Care [address] [place] [address] Kip Banuelos MD [address] [place] [address] [address] [place] [address] 03/03/2025 2:00 PM CDT Appointment [facility] Diagnostic Cardiology Services [facility] 755 [facility] [address] [place] [address] Kip Banuelos MD [address] [facility] [address] [place] [address] documented as of this encounter Procedures Procedure Name Priority Date/Time Associated Diagnosis Comments THROAT CULTURE Routine 08/13/2007 6:13 PM STOCK BROKER SUPERVISOR documented in this encounter Results * THROAT CULTURE (08/13/2007 6:13 PM STOCK BROKER SUPERVISOR) PRELIMINARY REPORT Pending INTERFACE SYSTEM FINAL REPORT No Group A, C, or G beta Streptococcus isolated. No Arcanobacterium haemolyticum isolated. INTERFACE SYSTEM Specimen from throat (specimen) 08/13/2007 6:13 PM STOCK BROKER SUPERVISOR 08/13/2007 8:58 PM STOCK BROKER SUPERVISOR Narrative INTERFACE SYSTEM - 08/13/2007 11:36 PM STOCK BROKER SUPERVISOR Specimen processed only for recovery of common pathogens known to cause pharyngitis. Special processing for fastidious throat pathogens, such as Neisseria gonorrhoeae or Corynebacterium diphtheriae, is available on SPECIAL REQUEST only. Contact the Laboratory prior to submitting the specimen. Specimen processed only for recovery of common pathogens known to cause pharyngitis. Special processing for fastidious throat pathogens, such as Neisseria gonorrhoeae or Corynebacterium diphtheriae, is available on SPECIAL REQUEST only. Contact the Laboratory prior to submitting the specimen. Kip Banuelos MD MICROBIOLOGY - GENERAL ORDERA BLES Final Result INTERFACE SYSTEM Refer to clinic/hospital department documented in this encounter Visit Diagnoses Diagnosis Acute pharyngitis documented in this encounter Care Teams Utility Clerk Relationship Specialty Start Date End Date Kip Banuelos MD [address] [facility] [address] [place] [phone] PCP - General 08/05/06 documented as of this encounter
--- OUTSIDE RECORDS SUMMARY | 2025-02-14 14:29 | XMS_ITS | Encounter Summary ---
Author Organization [facility] Address [address] [place] [address] Care Team Providers Care House Furnishings Supervisor Name Role Phone Kip Banuelos MD Primary Care Provider [phone] Encounter Details Date Type Department Care Team (Late st Contact Info) Description 07/11/2006 Outpatient Historical [facility] Internal Medicine [address] [address] Kip Banuelos MD [address] [place] [address] Social History Tobacco Use Types Packs/Day Years Used Date Smoking Tobacco: Never Assessed Comments Unknown Sex and Gender Information Value Date Recorded Sex Assigned at Not on file Legal Sex Female 2:39 AM SET PAINTER Gender Identity Not on file Sexual Orientation Not on file documented as of this encounter Plan of Treatment Upcoming Encounters Date Type Department Care Team (Late st Contact Info) Description 02/15/2025 11:00 AM CDT Office Visit [facility]3] Primary Care [address] [place] [address] [place] [address] Kip Banuelos MD [address] [place] [address] [address] [place] [phone] 03/03/2025 2:00 PM CDT Appointment [facility] Diagnostic Cardiology Services [facility] 755 [facility] [address] [place] [phone] Kip Banuelos MD [address] [place] [address] [address] [place] [phone] documented as of this encounter Visit Diagnoses Not on filedocumented in this encounter Care Teams House Furnishings Supervisor Relationship Specialty Start Date End Date Kip Banuelos MD [address] [place] [address] [address] [place] [phone] PCP - General 08/05/06 documented as of this encounter
--- OUTSIDE RECORDS SUMMARY | 2025-02-14 14:29 | XMS_ITS | Encounter Summary ---
Author Organization [facility] Address [address] [place] [address] Care Team Providers Care Manager Loss Prevention Name Role Phone Kip Banuelos MD Primary Care Provider [phone] Encounter Details Date Type Department Care Team (Latest Contact Info) Description 09/18/2007 Outpatient Historical [facility] Kip Banuelos MD [address] [place] [address] [address] [place] [address] Abdominal or Pelvic Swelling, Mass or Lump, Unspecified Site; Disorder of Bone and Cartilage, Unspecified Social History Tobacco Use Types Packs/Day Years Used Date Smoking Tobacco: Never Assessed Comments Unknown Sex and Gender Information Value Date Recorded Sex Assigned at Not on file Legal Sex Female 2:39 AM LEGAL INTERNSHIP Gender Identity Not on file Sexual Orientation Not on file documented as of this encounter Plan of Treatment Upcoming Encounters Date Type Department Care Team (Late st Contact Info) Description 02/15/2025 11:00 AM CDT Office Visit [facility] Primary Care [facility] [address] [place] [address] [address] [place] [address] Kip Banuelos MD [address] [place] [address] [address] [place] [address] 03/03/2025 2:00 PM CDT Appointment [facility] Diagnostic Cardiology Services [facility] 755 [facility] [address] [place] [phone] Kip Banuelos MD [address] [place] [address] [address] [place] [phone] documented as of this encounter Procedures Procedure Name Priority Date/Time Associated Diagnosis Comments XR DEXA BONE DENSITY APPENDICULAR Routine 09/18/2007 4:30 PM CDT documented in this encounter Results * XR DEXA BONE DENSITY APPENDICULAR (09/18/2007 4:30 PM CDT) T-SCORE WRIST -2.5 - -1.0 INTE RFACE SYSTEM T-SCORE HEEL -2.5 - -1.0 INTER FACE SYSTEM Anatomical Region Laterality Modality Other 09/18/2007 4:30 PM CDT Kip Banuelos MD DIAGNOSTIC IMAGING ORDERABLES Final Result documented in this encounter Visit Diagnoses Diagnosis Abdominal or pelvic swelling, mass or lump, unspecified site Disorder of bone and cartilage, unspecified documented in this encounter Care Teams Manager Loss Prevention Relationship Specialty Start Date End Date Kip Banuelos MD [address] [place] [address] [address] [place] [phone] PCP - General 08/05/06 documented as of this encounter
--- OUTSIDE RECORDS SUMMARY | 2025-02-14 14:29 | XMS_ITS | Encounter Summary ---
Author Organization [facility] Address [address] [place] [address] Care Team Providers Care Wafer Polisher Name Role Phone Kip Banuelos MD Primary Care Provider [phone] Encounter Details Date Type Department Care Team (Late st Contact Info) Description 07/11/2006 Outpatient Historical [facility] Internal Medicine [address] [address] Kip Banuelos MD [address] [place] [address] Social History Tobacco Use Types Packs/Day Years Used Date Smoking Tobacco: Never Assessed Comments Unknown Sex and Gender Information Value Date Recorded Sex Assigned at Not on file Legal Sex Female 2:39 AM IT 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 Gender Identity Not on file Sexual Orientation Not on file documented as of this encounter Plan of Treatment Upcoming Encounters Date Type Department Care Team (Late st Contact Info) Description 02/15/2025 11:00 AM CDT Office Visit [facility] Primary Care [address] [place] [address] Kip Banuelos MD [address] [place] [address] [address] [place] [phone] 03/03/2025 2:00 PM CDT Appointment [facility] Diagnostic Cardiology Services [facility] 755 [facility] [address] [place] [phone] Kip Banuelos MD [address] [place] [address] [address] [place] [phone] documented as of this encounter Visit Diagnoses Not on filedocumented in this encounter Care Teams Wafer Polisher Relationship Specialty Start Date End Date Kip Banuelos MD [address] [place] [address] [address] [place] [phone] PCP - General 08/05/06 documented as of this encounter
--- OUTSIDE RECORDS SUMMARY | 2025-02-14 14:29 | XMS_ITS | Encounter Summary ---
Author Organization [facility] Address [address] [place] [address] Care Team Providers Care Instrumentation Tech Name Role Phone Kip Banuelos MD Primary Care Provider Encounter Details Date Type Department Care Team (Late st Contact Info) Description 11/30/2003 Outpatient Historical [facility] Internal Medicine [address] [address] Kip Banuelos MD [address] [place] [address] Social History Tobacco Use Types Packs/Day Years Used Date Smoking Tobacco: Never Assessed Comments Unknown Sex and Gender Information Value Date Recorded Sex Assigned at Not on file Legal Sex Female 2:39 AM CANCER CENTER DIRECTOR Gender Identity Not on file Sexual Orientation Not on file documented as of this encounter Last Filed Vital Signs Vital Sign Reading Time Taken Comments Blood Pressure 120/80 11/30/2003 1:30 PM CDT Pulse - - Temperature 37.4 C (99.4 F) 11/30/2003 1:30 PM CDT Respiratory Rate - - Oxygen Saturation - - Inhaled Oxygen Concentration - - Weight 59 kg (130 lb) 11/30/2003 1:30 PM CDT Height - - Body Mass Index - - documented in this encounter Plan of Treatment Upcoming Encounters Date Type Department Care Team (Late st Contact Info) Description 02/15/2025 11:00 AM CDT Office Visit [facility] Primary Care [facility] [address] [facility] [address] [place] [phone] Kip Banuelos MD [address] [place] [address] [address] [place] [phone] 03/03/2025 2:00 PM CDT Appointment [facility] Cardiology Services [facility] 755 [facility] [address] [place] [phone] Kip Banuelos MD [address] [place] [address] [address] [place] [phone] documented as of this encounter Visit Diagnoses Not on filedocumented in this encounter Care Teams Instrumentation Tech Relationship Specialty Start Date End Date Kip Banuelos MD [address] [place] [address] [address] [place] [phone] PCP - General 08/05/06 documented as of this encounter
--- OUTSIDE RECORDS SUMMARY | 2025-02-14 14:29 | XMS_ITS | Encounter Summary ---
Author Organization [facility] Address [address] [place] [address] Care Team Providers Care Superintendent Measurement Name Role Phone Kip Banuelos MD Primary Care Provider [phone] Encounter Details Date Type Department Care Team (Latest Contact Info) Description 03/30/2008 Outpatient Historical [facility] Kip Banuelos MD [address] [place] [address] [address] [place] [address] Pneumonia, Organism Unspecified Social History Tobacco Use Types Packs/Day Years Used Date Smoking Tobacco: Never Assessed Comments Unknown Sex and Gender Information Value Date Recorded Sex Assigned at Not on file Legal Sex Female 2:39 AM LEAD PROJECT 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 Gender Identity Not on file Sexual Orientation Not on file documented as of this encounter Plan of Treatment Upcoming Encounters Date Type Department Care Team (Late st Contact Info) Description 02/15/2025 11:00 AM CDT Office Visit [facility] Primary Care [facility] [address] [facility] [address] [place] [address] Kip Banuelos MD [address] [place] [address] [address] [place] [address] 03/03/2025 2:00 PM CDT Appointment [facility] Diagnostic Cardiology Services [facility] [address] [facility] [address] [place] [address] Kip Banuelos MD [address] [place] [address] documented as of this encounter Procedures Procedure Name Priority Date/Time Associated Diagnosis Comments POC CREATININE Routine 03/30/2008 11:51 AM CDT documented in this encounter Results * POC CREATININE (03/30/2008 11:51 AM CDT) CREATININE POC 0.9 0.6 - 1.3 mg/dL [facility] GFR, >60 >=60 mL/min/1.7 sq meter [facility] GFR >60 >=60 mL/min/1.7 sq meter [facility] Capillary blood specimen (specimen) 03/30/2008 11:51 AM CDT 03/30/2008 11:51 AM CDT us Kip Banuelos MD POINT OF CARE TESTING Edited INTERFACE SYSTEM Refer to clinic/hospital department [facility] CLIA# [id number] [address] [facility] [place] [address] documented in this encounter Visit Diagnoses Diagnosis Pneumonia, organism unspecified(486) Pneumonia, organism unspecified documented in this encounter Care Teams Superintendent Measurement Relationship Specialty Start Date End Date Kip Banuelos MD [address] [place] [phone] PCP - General 08/05/06 documented as of this encounter
--- OUTSIDE RECORDS SUMMARY | 2025-02-14 14:29 | XMS_ITS | Encounter Summary ---
Author Organization [facility] Address [address] [place] [address] Care Team Providers Care Song Lyricist Name Role Phone Kip Banuelos MD Primary Care Provider [phone] Encounter Details Date Type Department Care Team (Late st Contact Info) Description 12/21/2003 Outpatient Historical [facility] Internal Medicine [address] [address] Kip Banuelos MD [address] [place] [address] Social History Tobacco Use Types Packs/Day Years Used Date Smoking Tobacco: Never Assessed Comments Unknown Sex and Gender Information Value Date Recorded Sex Assigned at Not on file Legal Sex Female 2:39 AM BOX TENDER Gender Identity Not on file Sexual Orientation Not on file documented as of this encounter Plan of Treatment Upcoming Encounters Date Type Department Care Team (Late st Contact Info) Description 02/15/2025 11:00 AM CDT Office Visit [facility] Primary Care [address] [place] [address] Kip Banuelos MD [address] [place] [address] [address] [place] [phone] 03/03/2025 2:00 PM CDT Appointment [facility] Diagnostic Cardiology Services [facility] [address] [facility] [address] [place] [phone] Kip Banuelos MD [address] [place] [address] [address] [place] [phone] documented as of this encounter Visit Diagnoses Not on filedocumented in this encounter Care Teams Song Lyricist Relationship Specialty Start Date End Date Kip Banuelos MD [address] [place] [address] [address] [place] [phone] PCP - General 08/05/06 documented as of this encounter
--- OUTSIDE RECORDS SUMMARY | 2025-02-14 14:29 | XMS_ITS | Encounter Summary ---
Author Organization [facility] Address [address] [place] [address] Care Team Providers Care It Security Engineer Name Role Phone Kip Banuelos MD Primary Care Provider [phone] Encounter Details Date Type Department Care Team (Late st Contact Info) Description 08/13/2007 Outpatient Historical [facility] Internal Medicine [address] [address] Kip Banuelos MD [address] [place] [address] Social History Tobacco Use Types Packs/Day Years Used Date Smoking Tobacco: Never Assessed Comments Unknown Sex and Gender Information Value Date Recorded Sex Assigned at Not on file Legal Sex Female 2:39 AM REFERENCE ARCHIVIST Gender Identity Not on file Sexual Orientation Not on file documented as of this encounter Plan of Treatment Upcoming Encounters Date Type Department Care Team (Late st Contact Info) Description 02/15/2025 11:00 AM CDT Office Visit [facility] Primary Care [address] [place] [address] Kip Banuelos MD [address] [place] [address] [address] [place] [phone] 03/03/2025 2:00 PM CDT Appointment [facility] Diagnostic Cardiology Services [facility] [address] [facility] [address] [place] [phone] Kip Banuelos MD [address] [place] [address] [address] [place] [phone] documented as of this encounter Visit Diagnoses Not on filedocumented in this encounter Care Teams It Security Engineer Relationship Specialty Start Date End Date Kip Banuelos MD [address] [place] [address] [address] [place] [phone] PCP - General 08/05/06 documented as of this encounter
--- OUTSIDE RECORDS SUMMARY | 2025-02-14 14:29 | XMS_ITS | Patient Health Record ---
Author Organization [facility] Address [address] [facility] [address] [place] [address] Care Team Providers Care Tool Planner Name Role Phone Vin BAY, Kip Primary Care Provider Christian Vang Unavailable [phone] Allergies Allergen (clinical drug ingredient) Drug/Non Drug Allergy documented on EMR Reaction Allergy Type Onset Date Status Other/Unlisted (uncoded) other Allergy Active Reason For Referral No Information Medications Medication SIG (Take, Route, Frequency, Duration) Notes Start Date End Date Status Escitalopram Oxalate Active OTC/Vitamins ASA, Vit D Active Levothyroxine Sodium Active amLODIPine Besylate Active Pravastatin Sodium A ctive Omeprazole 20 MG 1 capsule Orally On ce a day Active Immunizations Vaccine Route Administration Date Status Comme nts Pneumococcal polysaccharide PPV23 Unknown 02/16/2015 Ad ministered Social History Tobacco Use: Social History Observation Description Date Details (start date - stop date) Never Smoker NA - NA Tobacco Use/Smoking Question Answer Notes Are you a nonsmoker Section Notes: , 5 children (vaginal births), retired Problems Problem Type SNOMED Code ICD Code Onset Dates Problem Status W/U Status Risk Notes Problem 69297633 Rectal polyp (K62.1) Active confirmed Problem 174324209 Colon cancer screening (Z12.11) Active confirmed Problem 543977295 Family history of colon cancer (Z80.0) Active confirmed Problem 905576422 Benign colon polyp (K63.5) Active confirmed Problem 953003168 Grade I internal hemorrhoids (K64.0) Active confirmed Problem 251476482 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 Plan Of Treatment Pending Test Test Name Order Date Colonoscopy 02/13/2023 Xray Esophagus/Barium Swallow 02/13/2023 Xray Swallow Funct/Cookie Funct 02/14/20 Initiate ARM 04/29/2023 Insurance Providers Payer Name Payer Address Payer Phone Subscriber Number Group Number Insured Name Patient Relationship to Insured Coverage Start Date Coverage End Date [employer] [place] PPO [address] [place] [address] [id number] Tatiana Rose Self - patient is the insured Medical (General) History Medical History History ICD Code GERD Hiatal Hernia Ischemic Colitis Hypothyroidism Depression/Anxiety Hypertension Surgical History Surgery Date(Month/Year) EGD (Outside Provider) Colonoscopy (outside provider) 2016 Anal Fissure Repair Sphincterotomy 2020 Appendectomy Cataract Extraction Cataract Surgery
--- OUTSIDE RECORDS SUMMARY | 2025-02-14 14:29 | XMS_ITS | Encounter Summary ---
Author Organization [facility] Address [address] [place] [address] Care Team Providers Care Metal Riveting Machine Operator Name Role Phone Kip Banuelos MD Primary Care Provider [phone] Encounter Details Date Type Department Care Team (Late st Contact Info) Description 08/13/2007 Outpatient Historical [facility] Internal Medicine [address] [address] Kip Banuelos MD [address] [place] [address] Social History Tobacco Use Types Packs/Day Years Used Date Smoking Tobacco: Never Assessed Comments Unknown Sex and Gender Information Value Date Recorded Sex Assigned at Not on file Legal Sex Female 2:39 AM TELEVISION CAMERAMAN Gender Identity Not on file Sexual Orientation Not on file documented as of this encounter Plan of Treatment Upcoming Encounters Date Type Department Care Team (Late st Contact Info) Description 02/15/2025 11:00 AM CDT Office Visit [facility] Primary Care [address] [place] [address] Kip Banuelos MD [address] [place] [address] [address] [place] [phone] 03/03/2025 2:00 PM CDT Appointment [facility] Diagnostic Cardiology Services [facility] [address] [facility] [address] [place] [phone] Kip Banuelos MD [address] [place] [address] [address] [place] [phone] documented as of this encounter Visit Diagnoses Not on filedocumented in this encounter Care Teams Metal Riveting Machine Operator Relationship Specialty Start Date End Date Kip Banuelos MD [address] [place] [address] [address] [place] [phone] PCP - General 08/05/06 documented as of this encounter
--- OUTSIDE RECORDS SUMMARY | 2025-02-14 14:29 | XMS_ITS | Encounter Summary ---
Author Organization [facility] Address [address] [place] [address] Care Team Providers Care Utility Plant Operative Name Role Phone Kip Banuelos MD Primary Care Provider [phone] Encounter Details Date Type Department Care Team (Late st Contact Info) Description 08/05/2006 Outpatient Historical [facility] Kip Banuelos MD [address] [place] [address] [address] [place] [address] Abn Find-Musculoskel Sys (Primary Dx) Social History Tobacco Use Types Packs/Day Years Used Date Smoking Tobacco: Never Assessed Comments Unknown Sex and Gender Information Value Date Recorded Sex Assigned at Not on file Legal Sex Female 2:39 AM LUMBER CHAIN OFFBEARER Gender Identity Not on file Sexual Orientation Not on file documented as of this encounter Plan of Treatment Upcoming Encounters Date Type Department Care Team (Late st Contact Info) Description 02/15/2025 11:00 AM CDT Office Visit [facility] Primary Care [facility] [address] [place] [address] [address] [place] [address] Kip Banuelos MD [address] [place] [address] [address] [place] [address] 03/03/2025 2:00 PM CDT Appointment [facility] Diagnostic Cardiology Services [place] [address] [facility] [address] [place] [address] Kip Banuelos MD [address] [place] [address] [place] [phone] documented as of this encounter Procedures Procedure Name Priority Date/Time Associated Diagnosis Comments POC CREATININE Routine 08/05/2006 9:38 AM LUMBER CHAIN OFFBEARER documented in this encounter Results * POC CREATININE (08/05/2006 9:38 AM LUMBER CHAIN OFFBEARER) CREATININE POC 1.0 0.6 - 1.3 mg/dL INTERFACE SYSTEM 08/05/2006 9:38 AM LUMBER CHAIN OFFBEARER us Kip Banuelos MD POINT OF CARE TESTING Edited INTERFACE SYSTEM Refer to clinic/hospital department documented in this encounter Visit Diagnoses Diagnosis Nonspecific (abnormal) findings on radiological and other examination of musculoskeletal system- Primary documented in this encounter Care Teams Utility Plant Operative Relationship Specialty Start Date End Date Kip Banuelos MD [address] [place] [address] [place] [phone] PCP - General 08/05/06 documented as of this encounter
--- OUTSIDE RECORDS SUMMARY | 2025-02-14 14:29 | XMS_ITS | Encounter Summary ---
Author Organization [facility] Address [address] [place] [address] Care Team Providers Care Dowel Maker Name Role Phone Kip Banuelos MD Primary Care Provider [phone] Encounter Details Date Type Department Care Team (Late st Contact Info) Description 11/06/2005 Orders Only [facility] Internal Medicine [address] [address] Kip Banuelos MD [address] [place] [address] Social History Tobacco Use Types Packs/Day Years Used Date Smoking Tobacco: Never Assessed Comments Unknown Sex and Gender Information Value Date Recorded Sex Assigned at Not on file Legal Sex Female 2:39 AM VISUAL EDUCATOR Gender Identity Not on file Sexual Orientation Not on file documented as of this encounter Progress Notes * Kip Banuelos MD - 03/18/2008 6:08 AM CDT TIME:02:31 pm PATIENT`S HOME PHONE: PATIENT`S WORK PHONE: PATIENT`S INSURANCE: [facility] WHO TOOK THE CALL: Nadia Bush S GENERAL INFORMATION ALTERNATIVE PHONE NUMBER: [phone] WHO CALLED: Patient called. PHARMACY NUMBER: [phone] SECTION 1: REQUESTED ACTION browss 11/06/05 at 02:31 pm: rx for clindamycin is seeing a dentist tomorrow DOCTOR`S RESPONSE: norris 11/06/05 at 02:34 pm MEDICATIONS: Call in to Pharmacy CLINDAMYCIN HCL ORAL CAPSULE CONVENTIONAL 300 MG, DIRECTED, 2 Dispensed, 2 Fills, status: NEW PRESCRIPTION, 11/06/2005, Comment: 600 mg 1 hr pre procedure. FINAL ACTION: flaco 11/06/05 at 02:36 pm Called pharmacy at 11/06/05 at 02:36 pm. documented in this encounter Plan of Treatment Upcoming Encounters Date Type Department Care Team (Late st Contact Info) Description 02/15/2025 11:00 AM CDT Office Visit [facility] Care [facility] [address] [facility] [address] [place] [phone] Kip Banuelos MD [address] [place] [address] [address] [place] [phone] 03/03/2025 2:00 PM CDT Appointment [facility] Diagnostic Cardiology Services [facility] [address] [facility] [address] [place] [address] Kip Banuelos MD [address] [place] [address] [address] [place] [phone] documented as of this encounter Visit Diagnoses Not on filedocumented in this encounter Care Teams Dowel Maker Relationship Specialty Start Date End Date Kip Banuelos MD [address] [place] [address] [address] [place] [phone] PCP - General 08/05/06 documented as of this encounter
--- OUTSIDE RECORDS SUMMARY | 2025-02-14 14:29 | XMS_ITS | Encounter Summary ---
Author Organization [facility] Address [address] [place] [address] Care Team Providers Care Learning Analyst Name Role Phone Kip Banuelos MD Primary Care Provider [phone] Encounter Details Date Type Department Care Team (Late Contact Info) Description 05/30/2005 Outpatient Historical [facility] Internal Medicine [address] [phone] Kip Banuelos MD [address] [place] [address] [address] [place] [address] Social History Tobacco Use Types Packs/Day Years Used Date Smoking Tobacco: Never Assessed Comments Unknown Sex and Gender Information Value Date Recorded Sex Assigned at Not on file Legal Sex Female 2:39 AM WIPING CLOTH CUTTER Gender Identity Not on file Sexual Orientation Not on file documented as of this encounter Last Filed Vital Signs Vital Sign Reading Time Taken Comments Blood Pressure 118/60 05/30/2005 2:00 PM WIPING CLOTH CUTTER Pulse - - Temperature - - Respiratory Rate - - Oxygen Saturation - - Inhaled Oxygen Concentration - - Weight 61.7 kg (136 lb) 05/30/2005 2:00 PM WIPING CLOTH CUTTER Height - - Body Mass Index - - documented in this encounter Plan of Treatment Upcoming Encounters Date Type Department Care Team (Late st Contact Info) Description 02/15/2025 11:00 AM CDT Office Visit [facility] Primary Care [address] [place] [address] Kip Banuelos MD [address] [place] [address] [address] [place] [phone] 03/03/2025 2:00 PM CDT Appointment [facility] Diagnostic Cardiology Services [address] [place] [phone] Kip Banuelos MD [address] [place] [address] [address] [place] [phone] documented as of this encounter Visit Diagnoses Not on filedocumented in this encounter Care Teams Learning Analyst Relationship Specialty Start Date End Date Kip Banuelos MD [address] [place] [address] [address] [place] [phone] PCP - General 08/05/06 documented as of this encounter
--- OUTSIDE RECORDS SUMMARY | 2025-02-14 14:29 | XMS_ITS | Encounter Summary ---
Author Organization [facility] Address [address] [place] [address] Care Team Providers Care Computer Forensics Investigator Name Role Phone Kip Banuelos MD Primary Care Provider [phone] Encounter Details Date Type Department Care Team (Late Contact Info) Description 01/05/2004 Outpatient Historical [facility] Internal Medicine [address] [address] Kip Banuelos MD [address] [place] [address] [address] [place] [address] Social History Tobacco Use Types Packs/Day Years Used Date Smoking Tobacco: Never Assessed Comments Unknown Sex and Gender Information Value Date Recorded Sex Assigned at Not on file Legal Sex Female 2:39 AM WATER QUALITY ANALYST Gender Identity Not on file Sexual Orientation Not on file documented as of this encounter Last Filed Vital Signs Vital Sign Reading Time Taken Comments Blood Pressure 120/70 01/05/2004 4:30 PM CDT Pulse - - Temperature - - Respiratory Rate - - Oxygen Saturation - - Inhaled Oxygen Concentration - - Weight - - Height - - Body Mass Index - - documented in this encounter Plan of Treatment Upcoming Encounters Date Type Department Care Team (Late st Contact Info) Description 02/15/2025 11:00 AM CDT Office Visit [facility] Primary Care [address] [place] [address] Kip Banuelos MD [address] [place] [address] [address] [place] [address] 03/03/2025 2:00 PM CDT Appointment [facility] Diagnostic Cardiology Services [facility] [address] [facility] [address] [place] [address] Kip Banuelos MD [address] [place] [address] [address] [place] [address] documented as of this encounter Visit Diagnoses Not on filedocumented in this encounter Care Teams Computer Forensics Investigator Relationship Specialty Start Date End Date Kip Banuelos MD [address] [place] [address] [address] [place] [address] PCP - General 08/05/06 documented as of this encounter
== END 2025-02-14 14:25 | disposition home or self-care (01) ==
LOC: ANHSURGERY 14:26
PROVIDERS: PCP Internal Medicine; Visit Provider Orthopaedic Surgery
DX: I10 Essential (primary) hypertension (principal); Z01.818 Encounter for other preprocedural examination
CPT/HCPCS: 93005

== ENCOUNTER 2025-02-17 00:16 | Day surgery (SDC) | payer MEDICARE, SELFPAY ==
--- NOTE | 2025-02-09 11:18 | PC.NURSE ---
Report to the Outpatient Waiting Room, entrance under the green pavilion located off [facility], at time _10 AM on date _02/17/25 . Planned Procedure Time: __1200 NOON .? Time changes happen often and if your time is changed the preop area will call you the afternoon before. - You and your visitor will be asked to self-screen and do not enter if you have any COVID symptoms. Please call surgeon if you need to reschedule. - A mask is optional within the hospital at this time. Patients may have clear liquids (water, carbonated beverages, clear teas, apple juice) until 3 hours prior to surgery ( 9 AM) with a maximum of 20 ounces. - No food from midnight until time of surgery and no smoking, or chewing tobacco (or any form of nicotine). No chewing gum, candy or mints. Take only the following medications with a SIP of water on the morning of surgery: ___LEVOTHYROXINE DO NOT STOP ANY OF YOUR OTHER PRESCRIPTION MEDICATIONS PRIOR TO SURGERY EXCEPT THE FOLLOWING Hold all vitamins and supplements for 3 days per anesthesiologist.LAST DOSE 02/13/25 Medications to discontinue per physician NONE MAY CONTINUE ASPIRIN PER DR RIVERA Please no make-up, nail albanian, hairspray, perfume, deodorant, or body powder the day of surgery.? No jewelry (including any body piercings) or valuables the day of surgery, leave them at home.? Please take a shower or bath the night before, or the morning of, surgery with an antibacterial soap.? Wear comfortable, loose fitting clothing.? Children are encouraged to wear pajamas. - Jewelry must be removed prior to entering the operating room.? Rings and piercings that are not removed may be cut off. - The hospital will not accept responsibility for valuables.? - Please leave all valuables, including medications, at home the day of surgery. If you are going home after surgery, a licensed tank driver must drive you home.? - NO public transportation without another adult if you receive anesthesia. - We recommend that an adult stay with you for 24 hours following discharge. - We also recommend that you do not drive, make important decision, drink alcoholic beverages, or take any drugs that were not prescribed by your health care provider for at least 24 hours after your discharge time. For Pediatric surgeries, we recommend two adults accompany the child home. Follow any additional instructions given to you from your surgeon. Telephone instructions given to __PATIENT and asked if any additional questions and then verbalized understanding. Patient advised to call surgeon office or pre surgery nurse liaison [phone] if any additional questions.
[2025-02-09 11:40] VITALS: BMI 28.3
--- NOTE | 2025-02-15 12:26 | PM.IMHP ---
H&P: HPI History of Present Illness Date/Time: 02/15/25 12:26 Chief Complaint: left heel pain Narrative: 79-year-old woman with left heel pain. Pain worse with weight-bearing, shoes and activity. Better she is off of it. Has undergone treatment with therapy, stretching exercises, activity modification, anti-inflammatories and cortisone injection. Review of Systems Constitutional: Constitutional: Denies fever(s) Eyes: Eyes: Denies blurry vision ENT: Reports Normal hearing present Cardiovascular: Cardiovascular: Denies chest pain and Denies dyspnea Respiratory: Respiratory: Denies dyspnea and Denies wheezing Gastrointestinal: Gastrointestinal: Denies abdominal pain Genitourinary: Genitourinary: Denies urinary urgency Musculoskeletal: Musculoskeletal: Reports as per HPI and Denies numbness Integumentary/Breasts: Skin/Breast: Denies changing lesions and Denies sores Neurologic: Reports Normal hearing present, Denies behavioral changes, Denies confusion, Denies numbness and Denies convulsions Psychiatric: Psychiatric: Denies behavioral changes, Denies confusion and Denies hallucinations Endocrine: Endocrine: Denies heat intolerance Hematologic/Lymphatic: Hematologic/Lymphatic: Denies easy bleeding Allergic/Immunologic: Allergic/Immunologic: Denies wheezing [facility] Past Medical History Medical History (Updated 02/15/25 @ 12:29 by Awais Piña MD) Plantar fasciitis, left Posterior calcaneal exostosis Achilles tendinitis of left lower extremity Family History Family History Mother Thyroid disorder Hypertension Heart disease Cancer Father Hypertension Heart disease Cancer Sibling Cancer Social History Social History Social History: caffeine use Smoking status: Never smoker Alcohol intake: current Drinks per week: 1 Living arrangements: with family Spiritual care concerns: No Meds Home Medications and Allergies Home Medications ?Medication ?Instructions ?Recorded ?Confirmed ?Type amlodipine 2.5 mg tablet 2.5 mg PO HS 02/09/25 02/09/25 History aspirin 81 mg capsule 81 mg PO HS 02/09/25 02/09/25 History cholecalciferol (vitamin D3) 25 1,000 unit PO DAILY 02/09/25 02/09/25 History mcg (1,000 unit) capsule cyanocobalamin (vitamin B-12) 1,000 mcg PO 2XW 02/09/25 02/09/25 History 1,000 mcg capsule escitalopram oxalate 10 mg tablet 10 mg PO HS 02/09/25 02/09/25 History levothyroxine 75 mcg tablet 75 mcg PO DAILY 02/09/25 02/09/25 History omeprazole 20 mg capsule,delayed 20 mg PO DAILY 02/09/25 02/09/25 History release pravastatin 40 mg tablet 40 mg PO HS 02/09/25 02/09/25 History Allergies Allergy/AdvReac Type Severity Reaction Status Date / Time clindamycin AdvReac Unknown Itching Verified 02/09/25 11:25 NSAIDS (Non-Steroidal AdvReac Unknown COLITIS Verified 02/09/25 11:25 Anti-Inflamma Exam Const: General: No confusion Orientation/consciousness: No confusion HENMT: Head: normal to inspection, normocephalic and atraumatic Eyes: Conjunctivae: conjunctivae normal Sclera: sclerae normal Neck: Neck: supple and nontender Chest: Chest palpation & inspection: normal inspection of the chest Resp: Effort & Inspection: normal respiratory effort and no audible wheezes Cardio: Rate: regular rate Rhythm: regular rhythm : General: Yes deferred Skin: General skin exam: no rashes or lesions noted Neuro: General: No confusion Extrem: General: capillary refill normal Right upper extremity: normal to inspection Left upper extremity: normal to inspection Right lower extremity: normal to inspection, hip/thigh Details: normal to inspection, ankle Details: no tenderness and no swelling and foot Details: normal capillary refill, toes with normal ROM and vascular exam Details: dorsalis pedis pulse present and normal capillary refill Left lower extremity: hip/thigh Details: normal to inspection, knee Details: normal to inspection and knee ligament exam normal Details: anterior drawer test normal, valgus stress test normal, varus stress test normal and Sho's test normal, ankle (no calf tenderness) Details: abnormal to inspection ( Posterior ankle, prominent posterior calcaneus), tenderness (posterior ankle joint, posterior calcaneus insertion Achilles tendon), swelling (moderate posterior ankle) Details: posteriorly, abnormal ROM ( ankle dorsiflexion 0, plantar flexion 40, inversion 15, eversion 5) Details: pain with active ROM and pain with passive ROM, crepitus Details: other ( ankle joint) and other ( good capillary refill in toes, 2+ DP pulse, light touch sensation intact, weakness with left-sided heel raise) and foot Details: normal capillary refill, toes with normal ROM, vascular exam Details: dorsalis pedis pulse present and motor-sensory exam light-touch normal Psych: Affect: normal affect Assessment and Plan Assessment and plan (1) Achilles tendinitis of left lower extremity: Code(s): M76.62 - Achilles tendinitis, left leg Status: Acute (2) Posterior calcaneal exostosis: Qualifiers: Laterality: left Qualified Code(s): M77.32 - Calcaneal spur, left foot Code(s): M77.30 - Calcaneal spur, unspecified foot Status: Acute (3) Plantar fasciitis, left: Code(s): M72.2 - Plantar fascial fibromatosis Status: Acute Assessment and Plan: She has failed formal physical therapy with modalities, heel inserts and activity modification. She is indicated for high-energy Ossatron shockwave treatment. She is unable to proceed with open surgical treatment due to medication insensitivity following previous treatment which caused ischemic colitis. ? Discussed nonoperative and operative treatment options with the patient. Risks and benefits of each as well as alternatives were reviewed. All of the patient's questions were answered. The risks of surgery reviewed including but not limited to: Neurovascular damage, wound complication, infection, blood clot, pulmonary embolus, stroke, myocardial infarction, and anesthetic risks up to and including . Continued pain and possible dysfunction were explained. Specific risks of the procedure including later recurrence of deformity. No guarantees were offered. If complications occur, the patient understands the need for further treatment, possible further surgery. Patient verbalizes understanding and wishes to proceed. ? PLAN: Left heel ossatron shockwave.
[2025-02-17] VITALS (8 sets, daily range): BP systolic 115–151; BP diastolic 50–63; PULSE 53–75; RESP 10–18; TEMP 36.1–37; O2SAT 93–99
--- OUTSIDE RECORDS SUMMARY | 2025-02-17 00:18 | XMS_ITS | Clinical Summary ---
Author Organization [facility] Administrative Offices Address [address] [place] [address] Care Team Providers Care Pets And Pet Supplies Salesperson Name Role Phone Kip Banuelos MD Primary Care Provider [phone] Allergies Active Allergy Reactions Criticality Noted Date [...] bedtime. 90 Tablet 3 08/22/19 22 Active benzonatate (TESSALON) 200 mg capsule Take 1 Capsule (200 mg) by mouth 3 times daily. 30 Capsule 2 08/17/19 23 Active albuterol sulfate 90 mcg/actuation metered powder inhaler Take 2 Puffs by inhalation every 6 hours as needed for Shortness of Breath. 1 Each 1 01/01/20 23 Active rOPINIRole (REQUIP) 0.25 mg tabletIndicati ons:RLS (restless legs syndrome) TAKE 1 TABLET (0.25 MG) BY MOUTH DAILY AT BEDTIME 90 Tablet 1 04/14/20 23 Active doxepin HCl 4% cream compound Apply topically to the affected area every 4 hours as needed. 60 Gram 4 4:58 PM PRINTING GRAY CLOTH TENDER 05/28/20 23 Active tobramycin (TOBREX) 0.3 % solution Administer 1 Drop in left eye every 4 hours. 5 mL 12/19/19 24 Active pravastatin (PRAVACHOL) 40 mg tablet TAKE 1 [...] t be different from the original. [id number] 02/15/25 Dr. Frank Dover - Licensed Journeyman Electrician Problem Noted Date Diagnosed Date Prediabetes 09/16/2018 [...] Encounters Date Type Department Care Team Description 02/15/2025 11:00 AM CDT Office Visit [address] [place] [address] Kip Banuelos MD Need for influenza vaccination (Primary Dx); Age-related osteoporosis without current pathological fracture; Essential hypertension; Other hyperlipidemia; Other specified hypothyroidism; Vitamin B12 deficiency (non anemic); Mitral valve insufficiency, unspecified etiology; Abnormal glucose 02/08/2025 External Device Data STL ABSTRACTION Provider, Abstract 01/25/2025 External Device Data STL ABSTRACTION Provider, Abstract 01/20/[address] [place] [address] Kip Banuelos MD 01/12/2025 External Device Data STL ABSTRACTION Provider, Abstract 12/22/2024 External Device Data STL ABSTRACTION Provider, Abstract 12/22/2024 External Device Data STL ABSTRACTION Provider, Abstract 12/22/2024 External Device Data STL ABSTRACTION Provider, Abstract 12/21/2024 External Device Data STL ABSTRACTION Provider, Abstract 12/08/[address] [place] [address] Kip Banuelos MD 11/30/2024 Orders Only [address] [place] [address] Provider, Abstract 11/24/2024 External Device Data STL ABSTRACTION Provider, Abstract 11/23/2024 External Device Data STL ABSTRACTION Provider, Abstract from Last 3 Months Immunizations Immunization Administration [...] COVID-19 VACCINE - EMERGENCY USE AUTHORIZATION, MRNA, [id number](PF) 30 MCG/0.3 ML IM SUSP 10/16/2021,03/17/2021,08/01/2020,07/11 (PNEUMOVAX [...] YR UP PF IM 02/23/2024,02/07/2022,02/21/2021,03/13 INFLUENZA VACCINE HIGH DOSE TRIVALENT SPLIT VIRUS, (65 YR UP), 0.5ML (PF), IM 02/15/2025 INFLUENZA VACCINE QUADRIVALE NT 6 MOS UP IM 02/24/2023 INFLUENZA VACCINE QUADRIVALE NT 6 MOS UP PF IM 03/30/2015 Influenza A (H1N1) Vaccine IM [facility] 04/09/2009 Influenza Seasonal Unspecifi ed Formulation IM [...] Grandfather Michael Heart Disease Maternal Grandmother Skyla Anemia Mother Sherie Hypertension Mother Sherie Skin Cancer Mother Sherie Thyroid Disease Mother Sherie Colon Cancer Paternal Grandmother Dayan Heart Disease Paternal Grandmother Dayan Healthy Sister 1 Healthy Sister 2 Healthy Sister 3 Relation Name Status Comments Brother 1 Alive Brother 2 Alive Father Nirav Alive Maternal Aunt Maternal Grandfather Michael Maternal Grandmother Skyla Mother Sherie Alive Other aunt Alive Paternal Grandmother Dayan Sister [...] often do you attend chur ch or islam services? More than 4 times per year 04/20/2020 Do you belong to any clubs o r organizations such as presybeterian groups, unions, fraternal or athletic groups, or [...] degree (e.g., MA, MS, [place], MEd, CHAIRLIFT OPERATOR, BLAIR) 04/20/2020 Comments No Sex and Gender Information Value Date Recorded Sex Assigned at Not on file Legal Sex Female 2:39 AM PRINTING GRAY CLOTH TENDER Gender Identity Not on file Sexual Orientation Not on file Last Filed Vital Signs Vital Sign Reading Time Taken Comments Blood Pressure 132/70 02/15/2025 10:59 AM CDT Pulse 50 02/15/2025 10:59 AM CDT Temperature 36.2 C (97.2 F) 07/04/2023 10:24 AM PRINTING GRAY CLOTH TENDER Respiratory Rate 16 12/31/2022 10:08 AM CDT Oxygen Saturation 96% 02/15/2025 10:59 AM CDT Inhaled Oxygen Concentration - - Weight 69.4 kg (153 lb) 02/15/2025 10:59 AM CDT Height 160 cm (5' 3) 02/15/2025 10:59 AM CDT Body Mass Index 27.1 02/15/2025 10:59 AM CDT Plan of Treatment Upcoming Encounters Date Type Department Care Team (Late st Contact Info) Description 03/03/2025 2:00 PM CDT Appointment [facility] Diagnostic Cardiology Services [facility] [address] [facility] [address] [place] [address] Kip Banuelos MD [address] [facility] [address] [place] [address] 08/29/2025 11:00 AM CDT Office Visit [facility] Primary Care [facility] [address] [place] [address] [address] [place] [address] Kip Banuelos MD [address] [facility] [address] [place] [address] Health Maintenance Due Date Last Done Comments COVID-19 Vaccine (2024-2 6 season) 2025 02/24/2023, 03/18/2022, 10/16/2021, Additional history exists OSTEOPOROSIS SCREENING 11/16/2029 , 10/28/2022, 09/22/2020, Additional history exists DTAP/TDAP/TD VACCINES (4 - T d or Tdap) 01/01/2032 12/31/2021, 06/18/2011, 07/11/2006, Additional history exists ZOSTER VACCINE Completed 04/26/2019, 02/22/2019 PNEUMOCOCCAL VACCINE 50+ YEARS Completed 0 08/21/2020, 03/07/2014, 02/08/2009, Additional history exists RSV VACCINE (60+ or ) Completed 03/20/2023 COLORECTAL SCREENING Discontinued 04/29/2023, 10/02/2015, 10/02/2015, Additional history exists Colorectal Cancer Screening Discontinued INFLUENZA VACCINE Completed 02/15/2025, , 02/24/2023, Additional history exists Medicare Advantage ([place]) Preventative Visit/Annual Wellness Visit Completed 02/15/2025, 07/04/2023, 07/02/2022, Additional history exists FIT-DNA Q 3 years Discontinued FIT/FOBT Q [...] ENDOSCOPY, COLON, SCREENING Routine 04/29/2023 1:43 PM PRINTING GRAY CLOTH TENDER from Last 3 Months or Most Recently [...] Comment: FASTING:YES FASTING: YES Test Performed at: [facility] [address] Emilie Rice MD Blood 02/12/2025 10:2 4 AM CDT 02/12/2025 10:25 AM CDT us Kip Banuelos MD HEMATOLOGY ORDERABLES Final R esult [facility] [phone] [facility] [address] * TSH (02/12/2025 10:24 AM CDT) TSH 1.09 0.40 - 4.50 mIU/L [facility] Comment: Test Performed at: [facility] [address] Emilie Rice MD Blood 02/12/2025 10:2 4 AM CDT 02/12/2025 10:25 AM CDT us Kip Banuelos MD CHEMISTRY ORDERABLES Final Re sult [facility] [phone] [facility] [address] * (ABNORMAL) HEMOGLOBIN A1C (02/12/2025 10:24 AM CDT) HEMOGLOBIN A1C 5.7(H) <5.7 % of total Hgb [facility] Comment: For someone without known diabetes, a [...] children. ESTIMATED AVERAGE GLUCOSE (MG/DL) 117 mg/dL [facility] ESTIMATED AVERAGE GLUCOSE (MMOL/L) 6.5 mmol/L [facility] Comment: FASTING:YES FASTING: YES Test Performed at: [email or web address] [place] [address] [place] [address] Emilie Rice Blood 02/12/2025 10:2 4 AM CDT 02/12/2025 10:25 AM CDT Kip Banuelos MD CHEMISTRY ORDERABLES Final Re sult Performing Organization Address City/[facility] Phone Number [facility] [phone] [place] [address] [place] [address] * VITAMIN B12 LEVEL (02/12/2025 10:24 AM CDT) Pathologist [facility] VITAMIN B12 698 200 - 1100 pg/mL [facility] Comment: FASTING:YES FASTING: YES Test Performed at: [facility] [address] [address] Emilie Rice MD Blood 02/12/2025 10:2 4 AM CDT 02/12/2025 10:25 AM CDT Kip Banuelos MD CHEMISTRY ORDERABLES Final Re sult Performing Organization Address City/State/ZIP Co ar Phone Number [facility] [phone] [facility] [address] * LIPID PANEL (02/12/2025 10:24 AM CDT) CHOLESTEROL 157 <200 mg/dL [facility] HDL 64 > OR = 50 mg/dL [facility] TRIGLYCERIDE 93 <150 mg/dL [facility] LDL CALCULATED 75 mg/dL (calc) [facility] Comment: Reference range: <100 Desirable range <100 mg/dL for primary prevention; <70 mg/dL for patients with CHD or diabetic patients with > or = 2 CHD risk factors. LDL-C is now calculated using the Lul-Stockton calculation, which is a validated novel method providing better accuracy than the Friedewald equation in the estimation of LDL-C. Lul NUÑEZ et al. TAYLER. 2013;310(19): 2256-4490 (http://education.[employer]/faq/ESL088) CHOL/HDL RATIO 2.5 <5.0 (calc) [facility] NON-HDL CHOLESTEROL 93 <130 mg/dL (calc) [facility] Comment: For patients with diabetes plus 1 major ASCVD risk factor, treating to a non-HDL-C goal of <100 mg/dL (LDL-C of <70 mg/dL) is considered a therapeutic option. Test Performed at: [facility] [address] Emilie Rice MD Blood 02/12/2025 10:2 4 AM CDT 02/12/2025 10:25 AM CDT us Kip Banuelos MD CHEMISTRY ORDERABLES Final Re sult [facility] [phone] [facility] [address] * COMPREHENSIVE METABOLIC PANEL (02/12/2025 10:24 AM CDT) Pathologist [facility] GLUCOSE 88 65 - 99 mg/dL [facility] Comment: Fasting reference interval BUN 17 7 - 25 mg/dL [facility] CREATININE 0.94 0.60 - 1.00 mg/dL [facility] GFR 62 > OR = 60 mL/min/1. 73m2 [facility] BUN/CREAT RATIO SEE NOTE: 6 - 22 (calc) [facility] Comment: Not Reported: [...] Comment: FASTING:YES FASTING: YES Test Performed at: [facility] [address] [facility] [place] [address] Emilie Rice MD Blood 02/12/2025 10:2 4 AM CDT 02/12/2025 10:25 AM CDT us Kip Banuelos MD CHEMISTRY ORDERABLES Final Re sult [facility] [phone] [facility] [address] [place] [address] * XR DEXA BONE DENSITY AXIAL 1 [...] report found in: Imaging Section of the [facility] EMR. Definitions: Normal: T-score above -1.0 [...] by Dr. Rolan Mota MD DICTATION LOCATION: 11/16/2024 3:10 PM CDT EXAMINATION: BONE DENSITY STUDY (DXA) DATE: 11/16/2024 3:05 PM HISTORY: 79 years Female. Postmenopausal. Osteoporosis. PROCEDURE: Planar images of the lumbar spine and hip(s). [employer] DEXA scanner for bone mineral density determination [...] images of the lumbar spine and hip(s). [employer] DEXA scanner for bone mineral density determination [...] report found in: Imaging Section of the [facility] EMR. Definitions: Normal: T-score above -1.0 [...] * ENDOSCOPY, COLON, SCREENING (04/29/2023 1:43 PM PRINTING GRAY CLOTH TENDER) us Abstract Provider GI PROCEDURE ORDERABLES Edited Result - Final [facility] CLIA# [id number] [address] [place], [place] [address] [place] [address] from Last 3 Months or Most Recently Relevant to Health Maintenance Insurance [employer] PPO [facility] [employer] Medicare Part D Advance Directives For more information, please contact: [phone] * Full Code (Latest Code Status on File) Date Activated Date Inactivated Comments 06/24/2017 7:49 AM 06/24/2017 11:48 AM * Full Code Date Activated Date Inactivated Comments 04/24/2015 6:56 AM 04/24/2015 10:56 AM Care Teams Pets And Pet Supplies Salesperson Relationship Specialty Start Date End Date Kip Banuelos MD [address] [place] [address] [address] [place] [address] [facility] - General 08/05/06
--- OUTSIDE RECORDS SUMMARY | 2025-02-17 00:18 | XMS_ITS | Encounter Summary ---
Author Organization [facility] Address [address] [place] [address] Care Team Providers Care Car Stereo Installer Name Role Phone Kip Banuelos MD Primary Care Provider [phone] Encounter Details Date Type Department Care Team (Late st Contact Info) Description 08/13/2007 Outpatient Historical [facility] Internal Medicine [address] [address] Kip Banuelos MD [address] [place] [address] [address] [place] [address] Social History Tobacco Use Types Packs/Day Years Used Date Smoking Tobacco: Never Assessed Comments Unknown Sex and Gender Information Value Date Recorded Sex Assigned at Not on file Legal Sex Female 2:39 AM STRETCHER LEVELER OPERATOR HELPER Gender Identity Not on file Sexual Orientation Not on file documented as of this encounter Plan of Treatment Upcoming Encounters Date Type Department Care Team (Late st Contact Info) Description 03/03/2025 2:00 PM CDT Appointment [facility] Diagnostic Cardiology Services [facility] [address] [facility] [address] [place] [address] Kip Banuelos MD [address] [place] [address] [address] [place] [address] 08/29/2025 11:00 AM CDT Office Visit [facility] Primary Care [facility] [address] [place] [address] [address] [place] [address] Kip Banuelos MD [address] [place] [address] [address] [place] [phone] documented as of this encounter Visit Diagnoses Not on filedocumented in this encounter Care Teams Car Stereo Installer Relationship Specialty Start Date End Date Kip Banuelos MD [address] [place] [address] [address] [place] [phone] PCP - General 08/05/06 documented as of this encounter
--- OUTSIDE RECORDS SUMMARY | 2025-02-17 00:18 | XMS_ITS | Clinical Summary ---
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 Gender Identity Not on file [...] history exists Medical Devices Implanted Type Area Paper Sorter And Counter Device Identifier Shelf Expiration Date Model / Serial / Lot [employer] 3 Hole Anatomic Graft Window Radius Right Wrist Volar Narrow [id number] - [id number] Implanted:Qty: 1 on 11/20/2021 by Ale Trujillo MD at [facility] Right: Wrist [employer] AR-8916VNR- 03 / / [employer] Low Profile Screws 3.5mm 12mm Self Drill Solid Midfoot Cortical T Ar-8935-12 - [id number] Implanted:Qty: 1 on 11/20/2021 by Ale Trujillo MD at [facility] Right: Wrist [employer] AR-8935-12 / / [employer] Screw Kreulock Compression Titanium 2.4x18mm [id number] - [id number] Implanted:Qty: 4 on 11/20/2021 by Ale Trujillo MD at [facility] Right: Wrist [employer] AR-8724VCL- 18 / / [employer] Screw Kreulock Compression Titanium 2.4x20mm [id number] - [id number] Implanted:Qty: 1 on 11/20/2021 by Ale Trujillo MD at [facility] Right: Wrist [employer] AR-8724VCL- 20 / / [employer] Screw Kreulock Compression Titanium 2.4x16mm [id number] - [id number] Implanted:Qty: 1 on 11/20/2021 by Ale Trujillo MD at [facility] Right: Wrist [employer] AR-8724VCL- 16 / / [employer] Screw Kreulock Compression Titanium 3.5x14mm [id number] - [id number] Implanted:Qty: 1 on 11/20/2021 by Ale Trujillo MD at [facility] Right: Wrist [employer] AR-8935CL-1 4 / / [employer] Screw Kreulock Compression Titanium 3.5x14mm [id number] - [id number] Implanted:Qty: 1 on 11/20/2021 by Ale Trujillo MD at [facility] Right: Wrist [employer] AR-8935CL-1 2 / [...] Dual x-ray absorptiometry (DEXA) was performed using [employer] system. GENERAL GUIDELINES: According to WHO guidelines, [...] Dual x-ray absorptiometry (DEXA) was performed using [employer] system. GENERAL GUIDELINES: According to WHO guidelines, [...] CDT PROCEDURE REPORT Patient: ROSELIA HONG Account: [id number] Room No: 3618-01 : 1945 Patient Type: [...] Most Recently Relevant to Health Maintenance Insurance [facility] MEDICARE ADVANTAGE [facility] MEDICARE Address: [address] [address] [place] [address] MEDICARE [facility] MEDICARE [facility] MEDICARE Care Teams Application Support Relationship Specialty Start Date End Date John Monzon MD PCP - General 04/08/16 Ruchi Sifuentes COTA Occupational Therapist Occupational Therapy 12/06/21
--- OUTSIDE RECORDS SUMMARY | 2025-02-17 00:18 | XMS_ITS | Encounter Summary ---
Author Organization [facility] Healthcare Address [address] [place] [address] Care Team Providers Care Gameplay Engineer Name Role Phone Kip Banuelos MD Primary Care Provider + Ruchi Sifuentes Unavailable Unavailable Reason for Visit * Reason Onset Date Comments Scheduling Appointments 09/21/2020 Reminder call for DEXA; No anwer Encounter Details Date Type Department Care Team (Late st Contact Info) Description 09/21/2020 Telephone [facility] [address] [place] [address] Indigo Ashraf RT Scheduling Appointments (Reminder call for DEXA; No anwer) Social History Tobacco Use Types Packs/Day Years Used Date Smoking Tobacco: Never Comments No Sex and Gender Information Value Date Recorded Sex Assigned at Not on file Legal Sex Female 1:37 PM 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
--- OUTSIDE RECORDS SUMMARY | 2025-02-17 00:18 | XMS_ITS | Encounter Summary ---
Author Organization [facility] Healthcare Address [address] [place] [address] Care Team Providers Care Clinical Consultant Name Role Phone Kip Banuelos MD Primary Care Provider + Ruchi Sifuentes Unavailable Unavailable Encounter Details Date Type Department Care Team (Late st Contact Info) Description 06/18/2022 Documentation [facility] Physical Therapy [address] [place] [address] Maria Elena Kay, PT Social History Tobacco [...] on file Legal Sex Female 1:37 PM ACTIVE DIRECTORY ENGINEER Gender Identity Not on file Sexual Orientation Not on file documented as of this encounter Plan of Treatment Not on file documented as of this encounter Visit Diagnoses Not on filedocumented in this encounter Care Teams Clinical Consultant Relationship Specialty Start Date End Date Kip Banuelos MD PCP - General 04/08/16 Ruchi Sifuentes COTA Occupational Therapist Occupational Therapy 12/06/21 documented as of this encounter
--- OUTSIDE RECORDS SUMMARY | 2025-02-17 00:18 | XMS_ITS | Encounter Summary ---
Author Organization [facility] Address [address] [place] [address] Care Team Providers Care City Maintenance Manager Name Role Phone Kip Banuelos MD Primary Care Provider [phone] Reason for Visit * Reason Onset Date Comments Misplaced eye glasses 04/10/2023 Encounter Details Date Type Department Care Team (Late st Contact Info) Description 04/10/2023 Telephone [facility] Primary Care [address] [place] [address] Kip Banuelos MD [address] [place] [address] [address] [place] [address] Misplaced eye glasses Social History [...] often do you attend chur ch or yazdanism services? More than 4 times per year 04/20/2020 Do you belong to any clubs o r organizations such as advent groups, unions, fraternal or athletic groups, or [...] degree (e.g., MA, MS, [place] Ann, MEd, RETAIL MORTGAGE BANKER, BLAIR) 04/20/2020 Comments No Sex and Gender Information Value Date Recorded Sex Assigned at Not on file Legal Sex Female 2:39 AM SPINE SPECIALIST Gender Identity Not on file Sexual [...] back if they are found. Call-back Number: [phone] documented in this encounter Plan of Treatment Upcoming Encounters Date Type Department Care Team (Late st Contact Info) Description 03/03/2025 2:00 PM CDT Appointment [facility] Cardiology Services [address] [address] Kip Banuelos MD [address] [place] [address] [address] [place] [address] 08/29/2025 11:00 AM CDT Office Visit [facility] Care [address] [place] [address] Kip Banuelos MD [address] [place] [address] [place] [address] documented as of this encounter Visit Diagnoses Not on filedocumented in this encounter Care Teams City Maintenance Manager Relationship Specialty Start Date End Date Kip Banuelos MD [address] [place] [address] [place] [phone] PCP - General 08/05/06 documented as of this encounter
--- OUTSIDE RECORDS SUMMARY | 2025-02-17 00:18 | XMS_ITS | Encounter Summary ---
Author Organization [facility] Address [address] [place] [address] Care Team Providers Care Experience Designer Name Role Phone Kip Banuelos MD Primary Care Provider [phone] Encounter Details Date Type Department Care Team (Late Contact Info) Description 12/25/2007 Outpatient Historical [facility] Christian Escamilla MD [address] [place] [address] [address] [place] [phone] Social History Tobacco Use Types Packs/Day Years Used Date Smoking Tobacco: Never Assessed Comments Unknown Sex and Gender Information Value Date Recorded Sex Assigned at Not on file Legal Sex Female 2:39 AM INSURANCE ATTORNEY Gender Identity Not on file Sexual Orientation Not on file documented as of this encounter Plan of Treatment Upcoming Encounters Date Type Department Care Team (Late Contact Info) Description 03/03/2025 2:00 PM CDT Appointment [facility] Diagnostic Cardiology Services [facility] 755 [facility] [address] [place] [address] Kip Banuelos MD 637 [facility] [address] [place] [address] 08/29/2025 11:00 AM CDT Office Visit [facility] Primary Care [facility] [address] [place] [address] [address] [place] [address] Kip Banuelos MD [address] [place] [address] [place] [address] documented as of this encounter Visit Diagnoses Not on filedocumented in this encounter Care Teams Experience Designer Relationship Specialty Start Date End Date Kip Banuelos MD [address] [place] [address] [address] [place] [address] PCP - General 08/05/06 documented as of this encounter
--- OUTSIDE RECORDS SUMMARY | 2025-02-17 00:18 | XMS_ITS | Encounter Summary ---
Author Organization [facility] Address [address] [place] [address] Care Team Providers Care Corrosion Prevention Metal Sprayer Name Role Phone Kip Banuelos MD Primary Care Provider [phone] Encounter Details Date Type Department Care Team (Latest Contact Info) Description 03/30/2008 Outpatient [address] [facility] Kip Banuelos MD [address] [place] [address] [address] [place] [address] Pneumonia, Organism Unspecified Social History Tobacco Use Types Packs/Day Years Used Date Smoking Tobacco: Never Assessed Comments Unknown Sex and Gender Information Value Date Recorded Sex Assigned at Not on file Legal Sex Female 2:39 AM NETWORK PROGRAM MANAGER Gender Identity Not on file Sexual Orientation Not on file documented as of this encounter Plan of Treatment Upcoming Encounters Date Type Department Care Team (Late st Contact Info) Description 03/03/2025 2:00 PM CDT Appointment [facility] Diagnostic Cardiology Services [facility] [address] [facility] [address] [place] [address] Kip Banuelos MD [address] [place] [address] [address] [place] [address] 08/29/2025 11:00 AM CDT Office Visit [facility] Primary Care [facility] [address] [place] [address] [address] [place] [address] Kip Banuelos MD [address] [place] [address] documented as of this encounter Procedures Procedure Name Priority Date/Time Associated Diagnosis Comments POC CREATININE Routine 03/30/2008 11:51 AM CDT documented in this encounter Results * POC CREATININE (03/30/2008 11:51 AM CDT) CREATININE POC 0.9 0.6 - 1.3 mg/dL [facility] GFR, >60 >=60 mL/min/1.7 sq meter [facility] GFR >60 >=60 mL/min/1.7 sq meter [facility] Capillary blood specimen (specimen) 03/30/2008 11:51 AM CDT 03/30/2008 11:51 AM CDT us Kip Banuelos MD POINT OF CARE TESTING Edited INTERFACE SYSTEM Refer to clinic/hospital department [facility] CLIA# [id number] [address] [facility] [place] [address] documented in this encounter Visit Diagnoses Diagnosis Pneumonia, organism unspecified(486) Pneumonia, organism unspecified documented in this encounter Care Teams Corrosion Prevention Metal Sprayer Relationship Specialty Start Date End Date Kip Banuelos MD [address] [place] [address] [address] [place] [phone] PCP - General 08/05/06 documented as of this encounter
--- OUTSIDE RECORDS SUMMARY | 2025-02-17 00:19 | XMS_ITS | Encounter Summary ---
Author Organization [facility] Address [address] [place] [address] Care Team Providers Care Brick Offbearer Name Role Phone Kip Banuelos MD Primary Care Provider [phone] Encounter Details Date Type Department Care Team (Late Contact Info) Description 01/05/2004 Outpatient Historical [facility] Internal Medicine [address] [address] Kip Banuelos MD 7 [facility] [address] [place] [address] Social History Tobacco Use Types Packs/Day Years Used Date Smoking Tobacco: Never Assessed Comments Unknown Sex and Gender Information Value Date Recorded Sex Assigned at Not on file 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 Gender Identity Not on file Sexual [...] Info) Description 03/03/2025 2:00 PM CDT Appointment [facility] Diagnostic Cardiology Services [facility] 755 [facility] [address] [place] [address] Kip Banuelos MD [address] [place] [address] [address] [place] [address] 08/29/2025 11:00 AM CDT Office Visit [facility] Care [address] [place] [address] Kip Banuelos MD [address] [place] [address] [place] [address] documented as of this encounter Visit Diagnoses Not on filedocumented in this encounter Care Teams Brick Offbearer Relationship Specialty Start Date End Date Kip Banuelos MD [address] [place] [address] [place] [address] PCP - General 08/05/06 documented as of this encounter
--- OUTSIDE RECORDS SUMMARY | 2025-02-17 00:19 | XMS_ITS | Encounter Summary ---
Author Organization [facility] Address [address] [place] [address] Care Team Providers Care Hydrometeorologist Name Role Phone Kip Banuelos MD Primary Care Provider [phone] Encounter Details Date Type Department Care Team (Late Contact Info) Description 03/26/2004 Outpatient Historical [facility] Internal Medicine [address] [address] Kip Banuelos MD 637 [facility] [address] [place] [address] Social History Tobacco Use Types Packs/Day Years Used Date Smoking Tobacco: Never Assessed Comments Unknown Sex and Gender Information Value Date Recorded Sex Assigned at Not on file 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 [place] [facility] 100 [place] [address] Kip Banuelos MD [address] [place] [address] [address] [place] [phone] 08/29/2025 11:00 AM CDT Office Visit [facility] Care [address] [place] [address] Kip Banuelos MD [address] [place] [address] [address] [place] [phone] documented as of this encounter Visit Diagnoses Not on filedocumented in this encounter Care Teams Hydrometeorologist Relationship Specialty Start Date End Date Kip Banuelos MD [address] [place] [address] [address] [place] [phone] PCP - General 08/05/06 documented as of this encounter
--- OUTSIDE RECORDS SUMMARY | 2025-02-17 00:19 | XMS_ITS | Encounter Summary ---
Author Organization [facility] Address [address] [place] [address] Care Team Providers Care Deliverer Merchandise Name Role Phone Kip Banuelos MD Primary Care Provider [phone] Encounter Details Date Type Department Care Team (Late st Contact Info) Description 06/07/2004 Outpatient Historical [facility] Internal Medicine [address] [phone] Kip Banuelos MD [address] 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 GRINDER Gender Identity Not on file Sexual Orientation Not on file documented as of this encounter Last Filed Vital Signs Vital Sign Reading Time Taken Comments Blood Pressure 120/70 06/07/2004 1:45 PM SEATER GRINDER Pulse - - Temperature - - Respiratory Rate - - Oxygen Saturation - - Inhaled Oxygen Concentration - - Weight 58.1 kg (128 lb) 06/07/2004 1:45 PM SEATER GRINDER Height - - Body Mass Index - - documented in this encounter Plan of Treatment Upcoming Encounters Date Type Department Care Team (Late st Contact Info) Description 03/03/2025 2:00 PM CDT Appointment [facility] Diagnostic Cardiology Services [facility] 755 [facility] [address] [place] [address] Kip Banuelos MD [address] [place] [address] [address] [place] [phone] 08/29/2025 11:00 AM CDT Office Visit [facility] Care [address] [place] [phone] Kip Banuelos MD [address] [place] [address] [address] [place] [phone] documented as of this encounter Visit Diagnoses Not on filedocumented in this encounter Care Teams Deliverer Merchandise Relationship Specialty Start Date End Date Kip Banuelos MD [address] [place] [address] [address] [place] [phone] PCP - General 08/05/06 documented as of this encounter
--- OUTSIDE RECORDS SUMMARY | 2025-02-17 00:19 | XMS_ITS | Encounter Summary ---
Author Organization [facility] Address [address] [place] [address] Care Team Providers Care Telesales Representative Name Role Phone Kip Banuelos MD Primary Care Provider [phone] Encounter Details Date Type Department Care Team (Latest Contact Info) Description 09/18/2007 Outpatient Historical [facility] Kip Banuelos MD [address] [place] [address] [address] [place] [address] Abdominal or Pelvic Swelling, Mass or Lump, Unspecified Site; Disorder of Bone and Cartilage, Unspecified Social History Tobacco Use Types Packs/Day Years Used Date Smoking Tobacco: Never Assessed Comments Unknown Sex and Gender Information Value Date Recorded Sex Assigned at Not on file 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 Gender Identity Not on file Sexual Orientation Not on file documented as of this encounter Plan of Treatment Upcoming Encounters Date Type Department Care Team (Late st Contact Info) Description 03/03/2025 2:00 PM CDT Appointment [facility] Diagnostic Cardiology Services [facility] 755 [facility] 100 [place] [address] Kip Banuelos MD [address] [place] [address] [address] [place] [address] 08/29/2025 11:00 AM CDT Office Visit [facility] Primary Care [address] [place] [address] Kip Banuelos MD [address] [place] [address] [address] [place] [phone] documented as of this encounter Procedures Procedure [...] unspecified documented in this encounter Care Teams Telesales Representative Relationship Specialty Start Date End Date Kip Banuelos MD [address] [place] [address] [address] [place] [phone] PCP - General 08/05/06 documented as of this encounter
--- OUTSIDE RECORDS SUMMARY | 2025-02-17 00:19 | XMS_ITS | Encounter Summary ---
Author Organization [facility] Address [address] [place] [address] Care Team Providers Care Photography And Prints Curator Name Role Phone Kip Banuelos MD Primary Care Provider [phone] Encounter Details Date Type Department Care Team (Late st Contact Info) Description 07/11/2006 Outpatient Historical [facility] Internal Medicine [address] [address] Kip Banuelos MD [address] [place] [address] [address] [place] [address] Social History Tobacco Use Types Packs/Day Years Used Date Smoking Tobacco: Never Assessed Comments Unknown Sex and Gender Information Value Date Recorded Sex Assigned at Not on file Legal 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 Female 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 Gender Identity Not on file Sexual Orientation Not on file documented as of this encounter Plan of Treatment Upcoming Encounters Date Type Department Care Team (Late st Contact Info) Description 03/03/2025 2:00 PM CDT Appointment [facility] Diagnostic Cardiology Services [facility] 755 [facility] [address] [place] [address] Kip Banuelos MD [address] [place] [address] [address] [place] [address] 08/29/2025 11:00 AM CDT Office Visit [facility] Primary Care [facility] [address] [place] [address] [address] [place] [address] Kip Banuelos MD [address] [place] [address] [address] [place] [phone] documented as of this encounter Visit Diagnoses Not on filedocumented in this encounter Care Teams Photography And Prints Curator Relationship Specialty Start Date End Date Kip Banuelos MD [address] [place] [address] [address] [place] [phone] PCP - General 08/05/06 documented as of this encounter
--- OUTSIDE RECORDS SUMMARY | 2025-02-17 00:19 | XMS_ITS | Encounter Summary ---
Author Organization [facility] Address [address] [place] [address] Care Team Providers Care Community Development Planner Name Role Phone Kip Banuelos MD Primary Care Provider Encounter Details Date Type Department Care Team (Late st Contact Info) Description 12/21/2003 Outpatient Historical [facility] Internal Medicine [address] [address] Kip Banuelos MD [address] [place] [address] [address] [place] [address] Social History Tobacco Use Types Packs/Day Years Used Date Smoking Tobacco: Never Assessed Comments Unknown Sex and Gender Information Value Date Recorded Sex Assigned at Not on file 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 Gender Identity Not on file Sexual Orientation Not on file documented as of this encounter Plan of Treatment Upcoming Encounters Date Type Department Care Team (Late st Contact Info) Description 03/03/2025 2:00 PM CDT Appointment [facility] Diagnostic Cardiology Services [facility] 755 [facility] [address] [place] [address] iKp Banuelos MD [address] [place] [address] [address] [place] [phone] 08/29/2025 11:00 AM CDT Office Visit [facility] Primary Care [facility] [address] [place] [address] [address] [place] [address] Kip aBnuelos MD [address] [place] [address] [address] [place] [phone] documented as of this encounter Visit Diagnoses Not on filedocumented in this encounter Care Teams Community Development Planner Relationship Specialty Start Date End Date Kip Banuelos MD [address] [place] [address] [address] [place] [phone] PCP - General 08/05/06 documented as of this encounter
--- OUTSIDE RECORDS SUMMARY | 2025-02-17 00:19 | XMS_ITS | Encounter Summary ---
Author Organization [facility] Address [address] [place] [address] Care Team Providers Care Punch Press Operator Name Role Phone Kip Banuelos MD Primary Care Provider [phone] Encounter Details Date Type Department Care Team (Latest Contact Info) Description 08/13/2007 Outpatient Historical [facility] Internal Medicine [address] [address] Kip Banuelos MD [address] [place] [address] [address] [place] [address] Acute Pharyngitis Social History Tobacco Use Types Packs/Day Years Used Date Smoking Tobacco: Never Assessed Comments Unknown Sex and Gender Information Value Date Recorded Sex Assigned at Not on file Legal 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 755 [facility] [address] [place] [address] Kip Banuelos MD [address] [place] [address] [address] [place] [address] 08/29/2025 11:00 AM CDT Office Visit [facility] Primary Care [facility] [address] [place] [address] [address] [place] [address] Kip Banuelos MD [address] [place] [address] [address] [place] [address] documented as of this encounter Procedures Procedure Name Priority Date/Time Associated Diagnosis Comments THROAT CULTURE Routine 08/13/2007 6:13 PM BARREL ENDSHAKE ADJUSTER documented in this encounter Results * THROAT CULTURE (08/13/2007 6:13 PM BARREL ENDSHAKE ADJUSTER) PRELIMINARY REPORT Pending INTERFACE SYSTEM FINAL REPORT No Group A, C, or G beta Streptococcus isolated. No Arcanobacterium haemolyticum isolated. INTERFACE SYSTEM Specimen from throat (specimen) 08/13/2007 6:13 PM BARREL ENDSHAKE ADJUSTER 08/13/2007 8:58 PM BARREL ENDSHAKE ADJUSTER Narrative INTERFACE SYSTEM - 08/13/2007 11:36 PM BARREL ENDSHAKE ADJUSTER Specimen processed only for recovery of common [...] pharyngitis documented in this encounter Care Teams Punch Press Operator Relationship Specialty Start Date End Date Kip Banuelos MD [address] [place] [address] [address] [place] [phone] PCP - General 08/05/06 documented as of this encounter
--- OUTSIDE RECORDS SUMMARY | 2025-02-17 00:19 | XMS_ITS | Encounter Summary ---
Author Organization [facility] Address [address] [place] [address] Care Team Providers Care Fluxer Name Role Phone Kip Banuelos MD Primary Care Provider [phone] Encounter Details Date Type Department Care Team (Late st Contact Info) Description 08/05/2006 Outpatient Historical [facility] DEPT Kip Banuelos MD [address] [place] [address] [address] [place] [address] Abn Find-Musculoskel Sys (Primary Dx) Social History Tobacco Use Types Packs/Day Years Used Date Smoking Tobacco: Never Assessed Comments Unknown Sex and Gender Information Value Date Recorded Sex Assigned at Not on file Legal Sex Female 2:39 AM CORN GROWER Gender Identity Not on file Sexual Orientation Not on file documented as of this encounter Plan of Treatment Upcoming Encounters Date Type Department Care Team (Late st Contact Info) Description 03/03/2025 2:00 PM CDT Appointment [facility] Diagnostic Cardiology Services [facility] [address] [facility] [address] [place] [address] Kip Banuelos MD [address] [place] [address] [address] [place] [address] 08/29/2025 11:00 AM CDT Office Visit [facility] Primary Care [address] [place] [address] Kip Banuelos MD [address] [place] [address] [place] [phone] documented as of this encounter Procedures Procedure Name Priority Date/Time Associated Diagnosis Comments POC CREATININE Routine 08/05/2006 9:38 AM CORN GROWER documented in this encounter Results * POC CREATININE (08/05/2006 9:38 AM CORN GROWER) CREATININE POC 1.0 0.6 - 1.3 mg/dL INTERFACE SYSTEM 08/05/2006 9:38 AM CORN GROWER us Kip Banuelos MD POINT OF CARE TESTING Edited INTERFACE SYSTEM Refer to clinic/hospital department documented in this encounter Visit Diagnoses Diagnosis Nonspecific (abnormal) findings on radiological and other examination of musculoskeletal system- Primary documented in this encounter Care Teams Fluxer Relationship Specialty Start Date End Date Kip Banuelos MD [address] [place] [address] [place] [address] PCP - General 08/05/06 documented as of this encounter
--- OUTSIDE RECORDS SUMMARY | 2025-02-17 00:19 | XMS_ITS | Encounter Summary ---
Author Organization [facility] Address 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 Gender Identity Not on file Sexual Orientation Not on file documented as of this encounter Plan of Treatment Upcoming Encounters Date Type Department Care Team (Late st Contact Info) Description 03/03/2025 2:00 PM CDT Appointment [facility] Diagnostic Cardiology Services [facility] 755 [facility] [address] [place] [address] Kip Banuelos MD [address] [place] [address] [address] [place] [address] 08/29/2025 11:00 AM CDT Office Visit [facility] Primary Care [facility] [address] [place] [address] [address] [place] [address] Kip Banuelos MD [address] [place] [address] [address] [place] [phone] documented as of this encounter Visit Diagnoses Not on filedocumented in this encounter Care Teams Supervisor Quilting Relationship Specialty Start Date End Date Kip Banuelos MD [address] [place] [address] [address] [place] [address] PCP - General 08/05/06 documented as of this encounter
--- OUTSIDE RECORDS SUMMARY | 2025-02-17 00:19 | XMS_ITS | Encounter Summary ---
Author Organization [facility] Address [address] [place] [address] Care Team Providers Care Utility Helicopter Repairer Name Role Phone Kip Banuelos MD Primary Care Provider [phone] Encounter Details Date Type Department Care Team (Late st Contact Info) Description 07/11/2006 Outpatient Historical [facility] Internal Medicine [address] [address] Kip Banuelos MD [address] [place] [address] [address] [place] [address] Social History Tobacco Use Types Packs/Day Years Used Date Smoking Tobacco: Never Assessed Comments Unknown Sex and Gender Information Value Date Recorded Sex Assigned at Not on file Legal 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 Female 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 Gender Identity Not on file Sexual Orientation Not on file documented as of this encounter Plan of Treatment Upcoming Encounters Date Type Department Care Team (Late st Contact Info) Description 03/03/2025 2:00 PM CDT Appointment [facility] Diagnostic Cardiology Services [facility] 755 [facility] [address] [place] [address] Kip Banuelos MD [address] [place] [address] [address] [place] [phone] 08/29/2025 11:00 AM CDT Office Visit [facility] Primary Care [facility] [address] [place] [address] [address] [place] [address] Kip Banuelos MD [address] [place] [address] [address] [place] [phone] documented as of this encounter Visit Diagnoses Not on filedocumented in this encounter Care Teams Utility Helicopter Repairer Relationship Specialty Start Date End Date Kip Banuelos MD [address] [place] [address] [address] [place] [phone] PCP - General 08/05/06 documented as of this encounter
--- OUTSIDE RECORDS SUMMARY | 2025-02-17 00:19 | XMS_ITS | Encounter Summary ---
Author Organization [facility] Address [address] [place] [address] Care Team Providers Care Paranormal Investigator Name Role Phone John Monzon MD Primary Care Provider [phone] Encounter Details Date Type Department Care Team (Latest Contact Info) Description 09/18/2007 Outpatient Historical [facility] John Monzon MD [address] [place] [address] [address] [place] [address] Lump or Mass in Breast Social History Tobacco Use Types Packs/Day Years Used Date Smoking Tobacco: Never Assessed Comments Unknown Sex and Gender Information Value Date Recorded Sex Assigned at Not on file 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 Diagnostic Cardiology Services [facility] 755 [facility] 100 [place] [address] John Monzon MD [address] [place] [address] [address] [place] [address] 08/29/2025 11:00 AM CDT Office Visit [facility] Primary Care [facility] [address] [place] [address] [address] [place] [address] John Monzon MD [address] [place] [address] documented as of this encounter Procedures Procedure Name Priority Date/Time Associated Diagnosis Comments CT CHEST W CONTRAST Routine 09/18/2007 2 :59 PM CDT POC CREATININE Routine 09/18/2007 2:56 PM CDT documented in this encounter Results * CT CHEST W CONTRAST (09/18/2007 2:59 PM CDT) Anatomical Region Laterality Modality Chest Other 09/18/2007 2:59 PM CDT Narrative 09/19/2007 7:51 AM CDT [address] [address] Admit Date: 09/18/2007 TATIANA HONG Sex: F Admit Prov: JOHN MONZON Date: 1945 Primary Care Prov: JOHN MONZON CMRN: [id number] Room: [facility] SSN: [id number] IMAGING SERVICES Ordering Prov: N/A Accession Number: [id number] Interpretation CT of the chest with intravenous [...] Procedure Note Merari Louise MD - 09/19/2007 [facility] [address] [place], [place] [address] Admit Date: 09/18/2007 TATIANA HONG Sex: F Admit Prov: JOHN MONZON Date: 1945 Primary Care Prov: JOHN MONZON CMRN: [id number] Room: [facility] SSN: [id number] IMAGING SERVICES Ordering Prov: N/A Interpretation CT [...] CREATININE POC 0.9 0.6 - 1.3 mg/dL [facility] Capillary blood specimen (specimen) 09/18/2007 2:56 PM CDT 09/18/2007 2:56 PM CDT us John Monzon MD POINT OF CARE TESTING Final R esult [facility] [address] [facility] [place] [address] documented in this encounter Visit Diagnoses Diagnosis Lump or mass in breast documented in this encounter Care Teams Paranormal Investigator Relationship Specialty Start Date End Date John Monzon MD [address] [place] [address] [place] [phone] PCP - General 08/05/06 documented as of this encounter
--- OUTSIDE RECORDS SUMMARY | 2025-02-17 00:19 | XMS_ITS | Encounter Summary ---
Author Organization [facility] Address [address] [place] [address] Care Team Providers Care Food Order Expediter Name Role Phone Kip Banuelos MD Primary Care Provider [phone] Encounter Details Date Type Department Care Team (Late st Contact Info) Description 11/30/2003 Outpatient Historical [facility] Internal Medicine [address] [address] Kip Banuelos MD [address] [place] [address] Social History Tobacco Use Types Packs/Day Years Used Date Smoking Tobacco: Never Assessed Comments Unknown Sex and Gender Information Value Date Recorded Sex Assigned at Not on file Legal 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 Female 2: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 Gender Identity Not on file Sexual Orientation [...] Info) Description 03/03/2025 2:00 PM CDT Appointment [facility] Cardiology Services [facility] [address] [facility] [address] [place] [address] Kip Banuelos MD [address] [place] [address] [address] [place] [phone] 08/29/2025 11:00 AM CDT Office Visit [facility] Primary Care [facility] 637 [facility] [address] [place] [phone] Kip Banuelos MD [address] [place] [address] [address] [place] [phone] documented as of this encounter Visit Diagnoses Not on filedocumented in this encounter Care Teams Food Order Expediter Relationship Specialty Start Date End Date Kip Banuelos MD [address] [place] [address] [address] [place] [phone] PCP - General 08/05/06 documented as of this encounter
--- OUTSIDE RECORDS SUMMARY | 2025-02-17 00:19 | XMS_ITS | Encounter Summary ---
Author Organization [facility] Address [address] [place] [address] Care Team Providers Care Ammunition Components Inspector Name Role Phone Kip Banuelos MD Primary Care Provider [phone] Encounter Details Date Type Department Care Team (Late Contact Info) Description 01/14/2005 Outpatient Historical [facility] Internal Medicine [address] [address] Kip Banuelos MD 637 [facility] [address] [place] [address] Social History Tobacco Use Types Packs/Day Years Used Date Smoking Tobacco: Never Assessed Comments Unknown Sex and Gender Information Value Date Recorded Sex Assigned at Not on file 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 Female 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 Gender Identity Not on file Sexual Orientation [...] Info) Description 03/03/2025 2:00 PM CDT Appointment [facility] Diagnostic Cardiology Services [facility] 755 [facility] 100 [place] [address] Kip Banuelos MD [address] [place] [address] [address] [place] [phone] 08/29/2025 11:00 AM CDT Office Visit [facility] Care [address] [place] [phone] Kip Banuelos MD [address] [place] [address] [address] [place] [phone] documented as of this encounter Visit Diagnoses Not on filedocumented in this encounter Care Teams Ammunition Components Inspector Relationship Specialty Start Date End Date Kip Banuelos MD [address] [place] [address] [address] [place] [phone] PCP - General 08/05/06 documented as of this encounter
--- OUTSIDE RECORDS SUMMARY | 2025-02-17 00:19 | XMS_ITS | Encounter Summary ---
Author Organization [facility] Address [address] [place] [address] Care Team Providers Care Health Care Facility Administrator Name Role Phone Kip Banuelos MD Primary Care Provider [phone] Encounter Details Date Type Department Care Team (Late Contact Info) Description 05/30/2005 Outpatient Historical [facility] Internal Medicine [address] [phone] Kip Banuelos MD 637 [facility] [address] [place] [address] Social History Tobacco Use Types Packs/Day Years Used Date Smoking Tobacco: Never Assessed Comments Unknown Sex and Gender Information Value Date Recorded Sex Assigned at Not on file Legal Sex Female 2:39 AM LITIGATION COUNSEL Gender Identity Not on file Sexual Orientation Not on file documented as of this encounter Last Filed Vital Signs Vital Sign Reading Time Taken Comments Blood Pressure 118/60 05/30/2005 2:00 PM LITIGATION COUNSEL Pulse - - Temperature - - Respiratory Rate - - Oxygen Saturation - - Inhaled Oxygen Concentration - - Weight 61.7 kg (136 lb) 05/30/2005 2:00 PM LITIGATION COUNSEL Height - - Body Mass Index - - documented in this encounter Plan of Treatment Upcoming Encounters Date Type Department Care Team (Late st Contact Info) Description 03/03/2025 2:00 PM CDT Appointment [facility] Diagnostic Cardiology Services [facility] 755 [facility] 100 [place] [address] Kip Banuelos MD [address] [place] [address] [address] [place] [phone] 08/29/2025 11:00 AM CDT Office Visit [facility] Care [address] [place] [phone] Kip Banuelos MD [address] [place] [address] [address] [place] [phone] documented as of this encounter Visit Diagnoses Not on filedocumented in this encounter Care Teams Health Care Facility Administrator Relationship Specialty Start Date End Date Kip Banuelos MD [address] [place] [address] [address] [place] [phone] PCP - General 08/05/06 documented as of this encounter
--- OUTSIDE RECORDS SUMMARY | 2025-02-17 00:19 | XMS_ITS | Patient Health Record ---
Author Organization [employer] Address [address] [facility] [address] [place] [address] Care Team Providers Care Director Packaging Name Role Phone Vin BAY, Kip Primary Care Provider Christian Vang Unavailable [phone] Allergies Allergen (clinical drug ingredient) Drug/Non Drug [...] Problem Status W/U Status Risk Notes Problem 79595992 Rectal polyp (K62.1) Active confirmed Problem 278823578 Colon cancer screening (Z12.11) Active confirmed Problem 108789597 Family history of colon cancer (Z80.0) Active confirmed Problem 767945884 Benign colon polyp (K63.5) Active confirmed Problem 087781112 Grade I internal hemorrhoids (K64.0) Active confirmed Problem 207554164 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 Plan Of Treatment Pending Test Test Name Order Date Colonoscopy 02/13/2023 Xray Esophagus/Barium Swallow 02/13/2023 Xray Swallow Funct/Cookie Funct 02/14/20 Initiate ARM 04/29/2023 Insurance Providers Payer Name Payer Address Payer Phone Subscriber Number Group Number Insured Name Patient Relationship to Insured Coverage Start Date Coverage End Date [employer] [place] PPO [address] [place] [address] [id number] Tatiana Rose Self - patient is the insured Medical (General) History Medical History History ICD Code GERD Hiatal Hernia Ischemic Colitis Hypothyroidism Depression/Anxiety Hypertension Surgical History Surgery Date(Month/Year) EGD (Outside Provider) Colonoscopy (outside provider) 2016 Anal Fissure Repair Sphincterotomy 2020 Appendectomy Cataract Extraction Cataract Surgery
--- OUTSIDE RECORDS SUMMARY | 2025-02-17 00:19 | XMS_ITS | Encounter Summary ---
Author Organization [facility] Address [address] [place] [address] Care Team Providers Care Construction Trench Digger Name Role Phone Kip Banuelos MD Primary Care Provider [phone] Encounter Details Date Type Department Care Team (Late st Contact Info) Description 11/06/2005 Orders Only [facility] Internal Medicine [address] [address] Kip Banuelos MD [address] [place] [address] Social History Tobacco Use Types Packs/Day Years Used Date Smoking Tobacco: Never Assessed Comments Unknown Sex and Gender Information Value Date Recorded Sex Assigned at Not on file Legal Sex Female 2:39 AM EDGE INKER HEELS Gender Identity Not on file Sexual Orientation Not on file documented as of this encounter Progress Notes * Kip Banuelos MD - 03/18/2008 6:08 AM CDT TIME:02:31 pm PATIENT`S HOME PHONE: PATIENT`S WORK PHONE: PATIENT`S INSURANCE: [facility] WHO TOOK THE CALL: Nadia Bush S GENERAL INFORMATION ALTERNATIVE PHONE NUMBER: [phone] WHO CALLED: Patient called. PHARMACY NUMBER: [phone] SECTION 1: REQUESTED ACTION browss 11/06/05 at [...] Info) Description 03/03/2025 2:00 PM CDT Appointment [facility] Diagnostic Cardiology Services [facility] 7[address] [facility] [address] [place] [address] Kip Banuelos MD [address] [place] [address] [address] [place] [address] 08/29/2025 11:00 AM CDT Office Visit [facility] Care [facility] 637 [facility] [address] [place] [address] Kip Banuelos MD [address] [place] [address] [address] [place] [address] documented as of this encounter Visit Diagnoses Not on filedocumented in this encounter Care Teams Construction Trench Digger Relationship Specialty Start Date End Date Kip Banuelos MD [address] [place] [address] [address] [place] [phone] PCP - General 08/05/06 documented as of this encounter
--- OUTSIDE RECORDS SUMMARY | 2025-02-17 00:19 | XMS_ITS | Encounter Summary ---
Author Organization [facility] Address [address] [place] [address] Care Team Providers Care Conformal Pad Former Name Role Phone Kip Banuelos MD Primary Care Provider Encounter Details Date Type Department Care Team (Late st Contact Info) Description 08/13/2007 Outpatient Historical [facility] Internal Medicine [address] [address] Kip Banuelos MD [address] [place] [address] [address] [place] [address] Social History Tobacco Use Types Packs/Day Years Used Date Smoking Tobacco: Never Assessed Comments Unknown Sex and Gender Information Value Date Recorded Sex Assigned at Not on file Legal Sex Female 2:39 AM SIDE PANEL PADDER Gender Identity Not on file Sexual Orientation Not on file documented as of this encounter Plan of Treatment Upcoming Encounters Date Type Department Care Team (Late st Contact Info) Description 03/03/2025 2:[address] [facility] Diagnostic Cardiology Services [facility] 755 [facility] [address] [place] [address] Kip Banuelos MD [address] [place] [address] [address] [place] [address] 08/29/2025 11:00 AM CDT Office Visit [facility] Primary Care [facility] [address] [place] [address] [address] [place] [address] Kip Banuelos MD [address] [place] [address] [address] [place] [phone] documented as of this encounter Visit Diagnoses Not on filedocumented in this encounter Care Teams Conformal Pad Former Relationship Specialty Start Date End Date Kip Banuelos MD [address] [place] [address] [address] [place] [phone] PCP - General 08/05/06 documented as of this encounter
--- NOTE | 2025-02-17 08:11 | WPDHPUPDATE1 ---
History and Physical Update Update Date/Time: 02/17/25 08:11 History and Physical has been reviewed, including an updated exam of the patient. There are NO changes in the patient's condition. Risks, benefits, and alternatives have been discussed and questions answered. Patient agrees to proceed with procedure.
[2025-02-17] MEDS: ACETAMINOPHEN 500 MG TABLET 1000 MG PO (10:40)
[2025-02-17] MEDS: LACTATED RINGERS 1,000 ML 30 ML IV CONT (10:45)
--- NOTE | 2025-02-17 12:18 | WPDANESEPPF ---
Anes - Initial Pre Proc Eval Procedure: Operation Date: 02/17/25 12:00 Proposed Procedures p Left Heel [place] Shock Wave Treatment - Awais Piña MD Date/Time: 02/17/25 12:18 Surgeon: Awais Piña MD Pre Op Diagnosis: left foot plantar fasciitis Patient Data Age: 79 Gender: F Height: 1.55 m Weight: 69.1 kg Last Vital Signs Temp 98.6 F 02/17/25 10:15 Pulse 55 L 02/17/25 10:15 Resp 18 02/17/25 10:15 BP 151/63 H 02/17/25 10:15 Pulse Ox 98 02/17/25 10:15 O2 Del Method Room Air 02/17/25 10:15 Allergies Allergy/AdvReac Type Severity Reaction Status Date / Time clindamycin AdvReac Unknown Itching Verified 02/09/25 11:25 NSAIDS (Non-Steroidal AdvReac Unknown COLITIS Verified 02/09/25 11:25 Anti-Inflamma Home Medications ?Medication ?Instructions ?Recorded ?Confirmed ?Type amlodipine 2.5 mg tablet 2.5 mg PO HS 02/09/25 02/17/25 History aspirin 81 mg capsule 81 mg PO HS 02/09/25 02/09/25 History cholecalciferol (vitamin D3) 25 1,000 unit PO DAILY 02/09/25 02/17/25 History mcg (1,000 unit) capsule cyanocobalamin (vitamin B-12) 1,000 mcg PO 2XW 02/09/25 02/17/25 History 1,000 mcg capsule escitalopram oxalate 10 mg tablet 10 mg PO HS 02/09/25 02/17/25 History levothyroxine 75 mcg tablet 75 mcg PO DAILY 02/09/25 02/17/25 History omeprazole 20 mg capsule,delayed 20 mg PO DAILY 02/09/25 02/17/25 History release pravastatin 40 mg tablet 40 mg PO HS 02/09/25 02/17/25 History Patient hx anesthesia problems: none Family hx anesthesia problems: none Results Review: All pre-operative results and documents have been reviewed as part of the pre-operative evaluation. [facility] Past Medical History Medical History (Updated 02/15/25 @ 12:29 by Awais Piña MD) Plantar fasciitis, left Posterior calcaneal exostosis Achilles tendinitis of left lower extremity Family History Family History Mother Thyroid disorder Hypertension Heart disease Cancer Father Hypertension Heart disease Cancer Sibling Cancer Social History Social History Social History: caffeine use Smoking status: Never smoker Alcohol intake: current Drinks per week: 1 Living arrangements: with family Spiritual care concerns: No Anes - Eval Final PreProcedure Day of Procedure 02/17/25 12:18 Patient weight: normal Heart: regular rate and rhythm Lungs: clear to auscultation Airway: Mallampati scale class II Neurological: alert and oriented Last oral intake: >/= 8 hours ASA classification: III Emergent: no Anesthetic plan: proceed Anesthesia type and monitoring: general LMA and standard monitoring Results Review: All pre-operative results and documents have been reviewed as part of the pre-operative evaluation. Informed Consent: The patient's anesthetic plan and its attendant risks and benefits were discussed with the patient/family/POA. Questions were solicited and answers provided to the satisfaction of the patient/family/POA.
[2025-02-17] MEDS: BUPIVACAINE/EPINEPHRINE 0.5% 50 ML VIAL 20 ML INFILTRATE (12:31)
--- NOTE | 2025-02-17 13:00 | P.OP_ITS ---
Procedure Note - Detailed Date of Procedure 02/17/25 Pre-op Diagnosis left foot plantar fasciitis/heel pain Post-op Diagnosis Same Procedure Performed Left heel ossatron shockwave Surgeon Awais Piña MD Anesthesia General Indications 79-year-old with heel pain the left foot. Injection, physical therapy, st retching shoe accommodation. Unable to proceed with open surgical treatment. Presents for extracorporeal shockwave treatment Description of Procedure Patient identified in the preoperative holding. Informed consent given. Operative extremity marked. Patient marked the area of maximal tenderness on the left heel with indelible ink. Patient brought to the operating room where underwent general anesthetic by anesthesia team. Positioned supine on operating room table. Time-out performed confirming the patient, site of the surgery and the plan. Local anesthetic with 0.5% Marcaine plain for the heel. Shockwave unit then positioned for the heel. Ultrasound gel applied to the heel. Shockwave then applied to heel at an average of 19 kV for 2000 shock deliveries. Concentrated around area of marked maximal tenderness as well as diffusely plantar fascia, heel area and Achilles tendon insertion. Ultrasound gel then removed. Patient awoken from anesthesia and taken to the recovery room in stable condition. Estimated Blood Loss 0 Drains No Packing No Pathology None sent Complications None Condition Stable Disposition PACU [facility] Billing Surgery - Charge Forward: Surgery Billing ([id number])
== END 2025-02-17 14:45 | disposition home or self-care (01) ==
PROVIDERS: PCP Internal Medicine; Visit Provider Orthopaedic Surgery
PROC: (CPT 28890; principal; 2025-02-17 12:00)
DX: M76.62 Achilles tendinitis, left leg (principal); M77.32 Calcaneal spur, left foot; M72.2 Plantar fascial fibromatosis; Z79.82 Long term (current) use of aspirin; Z80.9 Family history of malignant neoplasm, unspecified; Z82.49 Family history of ischemic heart disease and other diseases of the circulatory system
CPT/HCPCS: 28890; A9270; J2405; J2704; J3010; J7120